=== PATIENT | male | born 1955 | race Hispanic/Latino ===

== ENCOUNTER 2016-10-07 18:37 | Emergency (ER) | payer MEDICAID, OTHER ==
[2016-10-07] MEDS ORDERED: Sodium Chloride 0.9% 1,000 ML ONE ×2 (19:37→22:47)
[2016-10-07 20:00] LABS: HEMATOCRIT 53.9 % (35.0-51.0); MEAN CELL VOLUME 93.8 fL (80.0-94.0); MEAN CORPUSCULAR HEMOGLOBIN 31.2 pg (27.0-31.0); MEAN CORPUSCULAR HGB CONC 33.3 g/dL (33.0-37.0); MEAN PLATELET VOLUME 11.8 fL (7.2-11.7); WHITE BLOOD COUNT 8.7 K/uL (4.8-10.8)
[2016-10-07 20:07] LABS: CHLORIDE 94 mmol/L (98-107); POTASSIUM 4.1 mmol/L (3.6-5.2); SODIUM 134 mmol/L (132-148)
[2016-10-07 20:09] LABS: BILIRUBIN,TOTAL 0.9 mg/dL (0.2-1.3); GFR AFRICAN-AMERICAN 57
[2016-10-07 20:10] LABS: ALB/GLOB RATIO 1.2 (1.0-2.1); ALKALINE PHOSPHATASE 113 U/L (38-126); ALT/SGPT 13 U/L (21-72); AST/SGOT 16 U/L (17-59); BLOOD UREA NITROGEN 16 mg/dL (9-20); CARBON DIOXIDE 25 mmol/L (22-30); GLUCOSE,RANDOM 334 mg/dL (75-110); TOTAL PROTEIN 8.9 g/dL (6.3-8.3)
[2016-10-07 20:11] LABS: CALCIUM 9.3 mg/dl (8.6-10.4)
--- NOTE | 2016-10-07 20:37 | C.PDOC ---
History Of Present Illness 61 year old patient, with a past medical history of hypertension, kidney stones , asthma, back problems, hypercholesterolemia, hepatitis and diabetes, presents to the ED complaining of tightness to the upper abdomen that began today. Patient states he also has pain and stiffness to his neck. Patient denies chest pain, nausea, vomiting, diarrhea, or shortness of breath. Time Seen by Provider: 10/07/16 20:20 History Per: Patient History/Exam Limitations: no limitations Onset/Duration Of Symptoms: Days (today) Current Symptoms Are (Timing): Still Present Context: Other Severity: Mild Pain Scale Rating Of: 3 Location Of Pain/Discomfort: Epigastric Radiation Of Pain To:: None Quality Of Discomfort: "Pain" Exacerbating Factors: None Alleviating Factors: None Last Bowel Movement: Today Recent travel outside of the [place]: No Past Medical History Reviewed: Historical Data, Nursing Documentation, Vital Signs Vital Signs: Last Vital Signs Temp Pulse 70 10/07/16 22:43 Resp 16 10/07/16 22:43 BP 77/51 L 10/07/16 22:43 Pulse Ox 98 10/07/16 22:43 - Medical History PMH: Asthma, Back Problems, Diabetes, Hepatitis (C), HTN, Hypercholesterolemia, Kidney Stones Surgical History: Coronary Stent (x1) - [facility] Procedures ESOPHAGOGASTRODUODENOSCOPY [EGD] W/CLOSED BIOPSY (07/31/13) EXCIS DEBRIDE OF WOUND, INFECT, OR BURN (03/22/14) INFLUENZA VACCINATION (03/22/14) INSERT INDWELLING CATH (12/09/14) LAPAROSCOPIC CHOLECYSTECTOMY (07/31/13) LAPAROSCOPIC ROBOTIC ASSISTED PROCEDURE (07/31/13) OTHER ENDOSCOPY OF SM INTEST (07/31/13) OTHER SKIN & SUBQ I D (03/22/14) VACCINATION NEC (04/05/13) Family History: States: Unknown Family Hx - Social History Hx Tobacco Use: Yes Hx Alcohol Use: No Hx Substance Use: No - Immunization History Hx Tetanus Toxoid Vaccination: Yes Hx Influenza Vaccination: Yes Hx Pneumococcal Vaccination: Yes Review Of Systems Except As Marked, All Systems Reviewed And Found Negative. Cardiovascular: Negative for: Chest Pain Respiratory: Negative for: Shortness of Breath Gastrointestinal: Positive for: Abdominal Pain (upper). Negative for: Nausea, Vomiting, Diarrhea Musculoskeletal: Positive for: Neck Pain (stiffness) Physical Exam - Physical Exam Appears: Non-toxic, No Acute Distress Skin: Warm, Dry Head: Atraumatic, Normacephalic Eye(s): bilateral: Normal Inspection Oral Mucosa: Moist Neck: Normal ROM, Supple Chest: Symmetrical, No Tenderness Cardiovascular: Rhythm Regular Respiratory: Normal Breath Sounds, No Rales, No Rhonchi, No Wheezing Gastrointestinal/Abdominal: Soft, Tenderness (mild epigastric), No Guarding, No Rebound Back: Normal Inspection, No CVA Tenderness Extremity: Normal ROM Neurological/Psych: Oriented x3, Normal Speech, Normal Motor, Normal Sensation Gait: Steady ED Course And Treatment - Laboratory Results Result Diagrams: 10/07/16 19:29 10/07/16 19:29 - CT Scan/US Chest CTA Other Rad Studies (CT/US): Read By Radiologist (Mikala Rivera MD), Radiology Report Reviewed CT/US Interpretation: EXAM: CT Angiography Chest With Intravenous Contrast. CLINICAL HISTORY: 61 years old, male; Signs and symptoms; Wheezing; Additional info: Elevated d-dimer. TECHNIQUE: Axial computed tomographic angiography images of the chest with intravenous contrast using. pulmonary embolism protocol. This CT exam was performed using one or more of the following dose. reduction techniques: automated exposure control, adjustment of the mA and/or kV according to. patient size, and/or use of iterative reconstruction technique. MIP reconstructed images were created and reviewed. Coronal and sagittal reformatted images were created and reviewed. CONTRAST: 100 mL of visipaque 320 administered intravenously. EXAM DATE/TIME: 10/07/2016 9:01 PM. COMPARISON: CT - CHEST W/CONTRAST 03/21/2014 6:08:02 PM. FINDINGS: Heart, aorta and Pulmonary arteries: Heart size is normal. There are coronary artery. calcifications.There is no aneurysm or dissection. There is perfusion of the 3 arch vesselsThere are. vascular calcifications. There are no pulmonary emboli. Lungs and pleural spaces: The trachea and bronchi lungs are well-inflated. There is no lobar or. segmental consolidation. There is dependent atelectasis in both lung bases. There is 6.8 mm. nodular opacity in the right upper lobe adjacent to the minor fissure. There are no effusions. There is. motion artifact. Mediastinum: There are no pathologically enlarged mediastinal or hilar nodes. Esophagus is. unremarkable. There is a small hiatal hernia. Thyroid: Thyroid is not optimally demonstrated. Bones/joints: There are no acute displaced rib fractures.Bony structures are osteopenic.There are. degenerative changes in the osseus structures. There is an old compression deformity at T7. Soft tissues: unremarkable. Upper abdomen: There are no acute abnormalities in the visualized portion of the abdomen. IMPRESSION: No aneurysm, dissection or pulmonary embolus; no focal pneumonia; 6.8 mm. nodular pleural-based opacity in the right upper lobe, allowing for differences in projection and. technique, opacity is unchanged. Disposition Counseled Patient/Family Regarding: Diagnosis - Disposition Referrals: [facility] at [facility] [Outside] Disposition: HOME/ ROUTINE Disposition Time: 22:58 Condition: STABLE Prescriptions: Famotidine [Pepcid] 20 mg PO BID #14 tab Sucralfate [Carafate] 1 gm PO BID #20 tab Instructions: Gastritis (GEN), Abdominal Pain (ED) - POA Present On Arrival: None - Clinical Impression Clinical Impression: Abdominal pain, Gastritis - Scribe Statement The provider has reviewed the documentation as recorded by the Rahul Holly Provider Attestation: All medical record entries made by the Fuentesibdawn were at my direction and personally dictated by me. I have reviewed the chart and agree that the record accurately reflects my personal performance of the history, physical exam, medical decision making, and the department course for this patient. I have also personally directed, reviewed, and agree with the discharge instructions and disposition.
[2016-10-07 20:53] VITALS: RESP 16
[2016-10-07 20:55] VITALS: BMI 24.3
--- NOTE | 2016-10-07 22:44 | CT ---
EXAM: CT Angiography Chest With Intravenous Contrast CLINICAL HISTORY: 61 years old, male; Signs and symptoms; Wheezing; Additional info: Elevated d-dimer TECHNIQUE: Axial computed tomographic angiography images of the chest with intravenous contrast using pulmonary embolism protocol. This CT exam was performed using one or more of the following dose reduction techniques: automated exposure control, adjustment of the mA and/or kV according to patient size, and/or use of iterative reconstruction technique. MIP reconstructed images were created and reviewed. Coronal and sagittal reformatted images were created and reviewed. CONTRAST: 100 mL of visipaque 320 administered intravenously. EXAM DATE/TIME: 10/07/2016 9:01 PM COMPARISON: CT - CHEST W/CONTRAST 03/21/2014 6:08:02 PM FINDINGS: Heart, aorta and Pulmonary arteries: Heart size is normal. There are coronary artery calcifications.There is no aneurysm or dissection. There is perfusion of the 3 arch vesselsThere are vascular calcifications. There are no pulmonary emboli. Lungs and pleural spaces: The trachea and bronchi lungs are well-inflated. There is no lobar or segmental consolidation. There is dependent atelectasis in both lung bases. There is 6.8 mm nodular opacity in the right upper lobe adjacent to the minor fissure. There are no effusions. There is motion artifact. Mediastinum: There are no pathologically enlarged mediastinal or hilar nodes. Esophagus is unremarkable. There is a small hiatal hernia. Thyroid: Thyroid is not optimally demonstrated. Bones/joints: There are no acute displaced rib fractures.Bony structures are osteopenic.There are degenerative changes in the osseus structures. There is an old compression deformity at T7. Soft tissues: unremarkable Upper abdomen: There are no acute abnormalities in the visualized portion of the abdomen. IMPRESSION: No aneurysm, dissection or pulmonary embolus; no focal pneumonia; 6.8 mm nodular pleural-based opacity in the right upper lobe, allowing for differences in projection and technique, opacity is unchanged.
[2016-10-07] MEDS ORDERED: Sodium Chloride 0.9% 1,000 ML IV ONE (22:49)
[2016-10-07] MEDS ORDERED: Sucralfate 1 gm/10 ml Oral Susp UD PO STA (22:53)
[2016-10-07] MEDS ORDERED: Sucralfate 1 gm/10 ml Oral Susp UD ONE (23:02)
[2016-10-07 23:42] VITALS: BP 100/57; PULSE 60; TEMP 98.4; O2SAT 96
--- NOTE | 2016-10-08 09:12 | RAD ---
HISTORY: PAIN COMPARISON: Chest x-ray performed 11/19/14 TECHNIQUE: Chest PA and lateral FINDINGS: LUNGS: No focal consolidation. Please note that chest x-ray has limited sensitivity for the detection of pulmonary masses. PLEURA: No significant pleural effusion identified. No definite pneumothorax . CARDIOVASCULAR: Heart size appears within normal limits. Atherosclerotic calcification of the aorta. OSSEOUS STRUCTURES: Osseous demineralization. Mild degenerative changes. VISUALIZED UPPER ABDOMEN: Unremarkable. OTHER FINDINGS: None. IMPRESSION: No focal consolidation, significant pleural effusion, or definite pneumothorax identified. Please note that pleural based opacity identified on subsequent CT of the chest cannot be assessed adequately on chest x-ray. Please refer to CT report for more detailed discussion.
== END 2016-10-07 23:42 | disposition home or self-care (01) ==
LOC: C.ER 18:37
DX: K29.70 Gastritis, unspecified, without bleeding (principal); R10.13 Epigastric pain
CPT/HCPCS: 71020; 71275; 80053; 82948; 83690; 83880; 84484; 85027; 85378; 96361; 96374; 99283; J7040; Q9967

== ENCOUNTER 2016-10-08 15:42 | Emergency (ER) | payer MEDICAID ==
[2016-10-08 15:43] VITALS: BMI 24.3
[2016-10-08] MEDS ORDERED: Sodium Chloride 0.9% 1,000 ML IV ONE (16:24)
[2016-10-08] MEDS ORDERED: Sodium Chloride 0.9% 1,000 ML ONE (16:39)
--- NOTE | 2016-10-08 16:39 | C.PDOC ---
History Of Present Illness A 61 year old male, with a history of HTN and gastritis, presents to the emergency room with complaints of abdominal pain for the last few days. Patient reports that the upper abdominal pain has been radiating to the left flank. Patient states that he was evaluated in the ER yesterday, had a negative CT, and was discharged home. Patient was seen by PMD and sent back to ER for reassessment. Patient denies any fever, chills, nausea, vomiting, diarrhea, any urinary symptoms, or any other complaints. Time Seen by Provider: 10/08/16 16:09 Chief Complaint (Nursing): Abdominal Pain History Per: Patient History/Exam Limitations: no limitations Onset/Duration Of Symptoms: Hrs Current Symptoms Are (Timing): Still Present Severity: Mild Radiation Of Pain To:: Flank Quality Of Discomfort: "Pain" Associated Symptoms: denies: Fever, Chills, Nausea, Vomiting, Diarrhea, Urinary Symptoms Exacerbating Factors: None Alleviating Factors: None Recent travel outside of the [place]: No Past Medical History Reviewed: Historical Data, Nursing Documentation, Vital Signs Vital Signs: Last Vital Signs Temp 98.2 F 10/08/16 15:58 Pulse 71 10/08/16 15:58 Resp 10 L 10/08/16 15:58 BP 145/80 10/08/16 15:58 Pulse Ox 99 10/08/16 16:49 - Medical History PMH: Asthma, Back Problems, Diabetes, Hepatitis (C), HTN, Hypercholesterolemia, Kidney Stones Surgical History: Coronary Stent (x1) - [facility] Procedures ESOPHAGOGASTRODUODENOSCOPY [EGD] W/CLOSED BIOPSY (07/31/13) EXCIS DEBRIDE OF WOUND, INFECT, OR BURN (03/22/14) INFLUENZA VACCINATION (03/22/14) INSERT INDWELLING CATH (12/09/14) LAPAROSCOPIC CHOLECYSTECTOMY (07/31/13) LAPAROSCOPIC ROBOTIC ASSISTED PROCEDURE (07/31/13) OTHER ENDOSCOPY OF SM INTEST (07/31/13) OTHER SKIN & SUBQ I D (03/22/14) VACCINATION NEC (04/05/13) Family History: States: Unknown Family Hx - Social History Hx Tobacco Use: Yes Hx Alcohol Use: No Hx Substance Use: No - Immunization History Hx Tetanus Toxoid Vaccination: Yes Hx Influenza Vaccination: Yes Hx Pneumococcal Vaccination: Yes Review Of Systems Except As Marked, All Systems Reviewed And Found Negative. Constitutional: Negative for: Fever, Chills Gastrointestinal: Positive for: Abdominal Pain. Negative for: Nausea, Vomiting , Diarrhea Musculoskeletal: Positive for: Back Pain (Left flank pain) Neurological: Negative for: Headache, Dizziness Physical Exam - Physical Exam Appears: Non-toxic Skin: Warm, Dry, No Rash Head: Atraumatic, Normacephalic Eye(s): bilateral: Normal Inspection Ear(s): Bilateral: Normal Oral Mucosa: Moist Cardiovascular: Rhythm Regular Respiratory: Normal Breath Sounds, No Rales, No Rhonchi, No Wheezing Gastrointestinal/Abdominal: Soft, Tenderness (Left sided abdomiinal tenderness) , No Guarding, No Rebound Back: No CVA Tenderness, No Vertebral Tenderness, Other (Left flank tenderness) Extremity: Normal ROM, No Tenderness, No Deformity, No Swelling Neurological/Psych: Oriented x3, Normal Speech, Normal Cognition ED Course And Treatment - Laboratory Results Result Diagrams: 10/08/16 16:40 10/08/16 16:40 O2 Sat by Pulse Oximetry: 99 Medical Decision Making Medical Decision Making: r/o gastritis, pancreatitis, renal stone Plan: -- EKG -- Abdomen & Pelvis CT -- Protonix & Zofran -- Labs pt reassessed. pain improving although mildly persisitent. case discussed with dr lee, requests obs for intractable abdominal pain Disposition - Disposition Disposition: HOSPITALIZED Disposition Time: 17:24 Condition: STABLE - Clinical Impression Clinical Impression: Intractable abdominal pain - Scribe Statement The provider has reviewed the documentation as recorded by the Scribe Juan rBan All medical record entries made by the Scribe were at my direction and personally dictated by me. I have reviewed the chart and agree that the record accurately reflects my personal performance of the history, physical exam, medical decision making, and the department course for this patient. I have also personally directed, reviewed, and agree with the discharge instructions and disposition. Decision To Admit - Pt Status Changed To: Hospital Disposition Of: Observation - . Bed Request Type: Regular Admitting Physician: Radha Lee Patient Diagnosis: Intractable abdominal pain
[2016-10-08 16:48] LABS: BASO # 0.1 K/uL (0.0-0.2); BASO % 1.3 % (0.0-2.0); EOS # 0.2 K/uL (0.0-0.7); EOS % 2.6 % (0.0-4.0); HEMATOCRIT 43.9 % (35.0-51.0); LYMPH # 2.1 K/uL (1.0-4.3); LYMPH % 33.4 % (20.0-40.0); MEAN CELL VOLUME 93.6 fL (80.0-94.0); MEAN CORPUSCULAR HEMOGLOBIN 31.1 pg (27.0-31.0); MEAN CORPUSCULAR HGB CONC 33.2 g/dL (33.0-37.0); MEAN PLATELET VOLUME 11.8 fL (7.2-11.7); MONO # 0.3 K/uL (0.0-0.8); MONO % 5.6 % (0.0-10.0); NRBC % 0.1 % (0.0-2.0); RED CELL DISTRIBUTION WIDTH 13.3 % (11.5-14.5); WHITE BLOOD COUNT 6.1 K/uL (4.8-10.8)
[2016-10-08 16:53] LABS: CHLORIDE 100 mmol/L (98-107)
[2016-10-08 16:54] LABS: SODIUM 133 mmol/L (132-148)
[2016-10-08 16:56] LABS: ALB/GLOB RATIO 1.2 (1.0-2.1); ALKALINE PHOSPHATASE 69 U/L (38-126); ALT/SGPT 14 U/L (21-72); AST/SGOT 14 U/L (17-59); BILIRUBIN,TOTAL 0.7 mg/dL (0.2-1.3); BLOOD UREA NITROGEN 25 mg/dL (9-20); CARBON DIOXIDE 22 mmol/L (22-30); GFR AFRICAN-AMERICAN > 60; GLUCOSE,RANDOM 259 mg/dL (75-110); TOTAL PROTEIN 6.5 g/dL (6.3-8.3)
[2016-10-08 17:04] LABS: RBC URINE < 1 /hpf (0-3); TRANSITIONAL EPITHIAL < 1 /hpf (0-3); URINE BACTERIA RARE (<OCC); URINE BILIRUBIN NEGATIVE (NEGATIVE); URINE BLOOD NEGATIVE (NEGATIVE); URINE COLOR Straw (YELLOW); URINE GLUCOSE (UA) 3+ mg/dL (Normal); URINE KETONE NEGATIVE (NEGATIVE); URINE LEUKOCYTE ESTERASE NEG Leu/uL (Negative); URINE PROTEIN NEGATIVE (NEGATIVE); URINE UROBILINOGEN NORMAL mg/dL (0.2-1.0); WBC URINE < 1 /hpf (0-5)
--- NOTE | 2016-10-08 17:17 | CT ---
PROCEDURE: CT Abdomen and Pelvis without intravenous contrast HISTORY: abd pain COMPARISON: Comparison is made to 04/08/2015 TECHNIQUE: Axial and reformatted coronal and sagittal CT images of the abdomen and pelvis were obtained without IV or oral contrast administration.. Contrast Dose: 0 Radiation dose: Total exam DLP = 488.29 mGy-cm. This CT exam was performed using one or more of the following dose reduction techniques: Automated exposure control, adjustment of the mA and/or kV according to patient size, and/or use of iterative reconstruction technique. FINDINGS: LOWER THORAX: Spiculated small density seen at the lingula likely represent scar tissue. LIVER: Heterogeneous mildly enlarged liver. No evidence of acute pathology or mass lesion in the liver. GALLBLADDER AND BILE DUCTS: Status post cholecystectomy. PANCREAS: Unremarkable. No gross lesion or ductal dilatation. SPLEEN: Unremarkable. ADRENALS: Unremarkable. No mass. KIDNEYS AND URETERS: Persistent kidney enhancement from previous study done yesterday. Correlate clinically for ATN and acute kidney insufficiency. No evidence of hydronephrosis or obstructing stone. VASCULATURE: Unremarkable. No aortic aneurysm. BOWEL: Mild constipation noted. No evidence of bowel obstruction. APPENDIX: No evidence of appendicitis. PERITONEUM: Unremarkable. No free fluid. No free air. LYMPH NODES: Unremarkable. No enlarged lymph nodes. BLADDER: Unremarkable. REPRODUCTIVE: Moderately enlarged heterogeneous prostate. BONES: No acute fracture. OTHER FINDINGS: None. IMPRESSION: Persistent enhancement of the kidneys likely from prior/yesterday contrast study. Correlate clinically for ATN and acute renal insufficiency. No evidence of hydronephrosis. Mild constipation without evidence of bowel obstruction. [id number] enlarged prostate.
[2016-10-08 20:19] VITALS: BP 151/96; PULSE 63; RESP 20; TEMP 98; O2SAT 95
--- NOTE | 2016-10-13 13:03 | CARD ---
APPROVED REPORT EKG Measurement Heart [id number] [place] 150P50 [id number] <Conclusion> Normal sinus rhythm Normal ECG
== END 2016-10-08 20:20 | disposition left against medical advice (07) ==
LOC: C.ER 15:42 → UNDOADMOB 17:23 → C.9E 17:23 → UNDODISOB 20:15 → C.ER 20:20
DX: R10.12 Left upper quadrant pain (principal); E11.9 Type 2 diabetes mellitus without complications; E78.00 Pure hypercholesterolemia, unspecified; I10 Essential (primary) hypertension; J45.909 Unspecified asthma, uncomplicated; Z87.891 Personal history of nicotine dependence
CPT/HCPCS: 74176; 80053; 81001; 83690; 84484; 85025; 85610; 85730; 96360; 96374; 99285; C9113; G0378; J2405; J7040

== ENCOUNTER 2017-03-09 20:53 | Emergency (ER) | payer MEDICAID ==
[2017-03-09 20:53] VITALS: BMI 24.3
[2017-03-09] MEDS ORDERED: (Novolin R) Insulin Human Regular 100 units/ml vial IV STA (21:20)
[2017-03-09] MEDS ORDERED: Sodium Chloride 0.9% 500 ML IV ONE (21:20)
--- NOTE | 2017-03-09 21:21 | C.PDOC ---
History Of Present Illness 61 y/o male c/o not sleeping properly for a week. Patient admits to cocaine abuse, in which he uses everyday. Patient has a hx of diabetes and stopped taking his meds. Denies chest pain, abdominal pain, SOB, or any other complaints. No dizziness, headache, weakness, or numbness. Time Seen by Provider: 03/09/17 21:24 Chief Complaint (Nursing): High Blood Pressure History Per: Patient History/Exam Limitations: no limitations Onset/Duration Of Symptoms: Days (1 week) Current Symptoms Are (Timing): Still Present Associated Symptoms: denies: Chest Pain, Dizziness, Headache Severity: Mild Additional History Per: Patient Past Medical History Reviewed: Historical Data, Nursing Documentation, Vital Signs Vital Signs: Last Vital Signs Temp 98 F 03/09/17 23:12 Pulse 86 03/09/17 23:12 Resp 20 03/09/17 23:12 BP 151/78 H 03/09/17 23:12 Pulse Ox 95 03/09/17 23:49 - Medical History PMH: Anxiety, Asthma, Back Problems, Diabetes, Hepatitis (C), HTN, Hypercholesterolemia, Kidney Stones Surgical History: Coronary Stent (x1) - [facility] Procedures ESOPHAGOGASTRODUODENOSCOPY [EGD] W/CLOSED BIOPSY (07/31/13) EXCIS DEBRIDE OF WOUND, INFECT, OR BURN (03/22/14) INFLUENZA VACCINATION (03/22/14) INSERT INDWELLING CATH (12/09/14) LAPAROSCOPIC CHOLECYSTECTOMY (07/31/13) LAPAROSCOPIC ROBOTIC ASSISTED PROCEDURE (07/31/13) OTHER ENDOSCOPY OF SM INTEST (07/31/13) OTHER SKIN & SUBQ I D (03/22/14) VACCINATION NEC (04/05/13) Family History: States: Unknown Family Hx - Social History Hx Tobacco Use: Yes Hx Alcohol Use: Yes Hx Substance Use: Yes - Immunization History Hx Tetanus Toxoid Vaccination: Yes Hx Influenza Vaccination: Yes Hx Pneumococcal Vaccination: Yes Review Of Systems Except As Marked, All Systems Reviewed And Found Negative. Constitutional: Positive for: Other Cardiovascular: Negative for: Chest Pain Respiratory: Negative for: Shortness of Breath Gastrointestinal: Negative for: Abdominal Pain Neurological: Positive for: Other (Not sleeping well for a week.). Negative for : Weakness, Numbness, Headache, Dizziness Physical Exam - Physical Exam Appears: Non-toxic, No Acute Distress Skin: Warm, Dry Head: Atraumatic, Normacephalic Oral Mucosa: Moist Cardiovascular: Rhythm Regular, No Murmur Respiratory: Normal Breath Sounds, No Rales, No Rhonchi, No Wheezing Gastrointestinal/Abdominal: Soft, No Tenderness Neurological/Psych: Oriented x3, Normal Speech, Normal Cognition, Other (No focal deficit) ED Course And Treatment - Laboratory Results Result Diagrams: 03/09/17 21:33 03/09/17 23:32 O2 Sat by Pulse Oximetry: 95 (RA) Pulse Ox Interpretation: Normal Medical Decision Making Medical Decision Making: Plans: * Blood labs * EKG * CXR * Xanax * Novolin * IV fluids UA Disposition Counseled Patient/Family Regarding: Diagnosis - Disposition Referrals: Radha Ferrari MD [Staff Provider] - Disposition: HOME/ ROUTINE Disposition Time: 23:51 Condition: STABLE Prescriptions: hydrOXYzine HCl [Atarax] 25 mg PO Q6H #14 tab Instructions: Polysubstance Abuse (ED), Diabetic Hyperglycemia (ED) Forms: [employer] (British) - POA Present On Arrival: None - Clinical Impression Clinical Impression: Cocaine abuse, Diabetes mellitus with hyperglycemia - Scribe Statement The provider has reviewed the documentation as recorded by the Scribe Avi torres All medical record entries made by the Scribe were at my direction and personally dictated by me. I have reviewed the chart and agree that the record accurately reflects my personal performance of the history, physical exam, medical decision making, and the department course for this patient. I have also personally directed, reviewed, and agree with the discharge instructions and disposition.
[2017-03-09] MEDS ORDERED: Sodium Chloride 0.9% 1,000 ML IV ONE (21:23)
[2017-03-09 21:41] LABS: ABG ALLEN TEST POS; ARTERIAL BLOOD HGB O2 SAT 88.5 % (95.0-98.0); CARBOXYHEMOGLOBIN 9.3 % (0.5-1.5); DRAW SITE RRA; HHB 1.2 % (0.0-5.0)
[2017-03-09 21:42] LABS: EOS # 0.1 K/uL (0.0-0.7); LYMPH # 1.6 K/uL (1.0-4.3); MEAN CORPUSCULAR HGB CONC 34.3 g/dL (33.0-37.0)
[2017-03-09] MEDS ORDERED: (Novolin R) Insulin Human Regular 100 units/ml vial ONE (21:42)
[2017-03-09 21:47] LABS: BASO # 0.1 K/uL (0.0-0.2); BASO % 0.8 % (0.0-2.0); EOS % 0.9 % (0.0-4.0); HEMATOCRIT 44.5 % (35.0-51.0); LYMPH % 21.9 % (20.0-40.0); MEAN CELL VOLUME 94.4 fL (80.0-94.0); MEAN CORPUSCULAR HEMOGLOBIN 32.4 pg (27.0-31.0); MONO # 0.4 K/uL (0.0-0.8); MONO % 5.2 % (0.0-10.0); NRBC % 0.1 % (0.0-2.0); RED CELL DISTRIBUTION WIDTH 13.5 % (11.5-14.5); WHITE BLOOD COUNT 7.3 K/uL (4.8-10.8)
[2017-03-09 21:51] LABS: CHLORIDE 98 mmol/L (98-107); SODIUM 130 mmol/L (132-148)
[2017-03-09 21:52] LABS: POTASSIUM 4.6 mmol/L (3.6-5.2)
[2017-03-09 21:54] LABS: ALB/GLOB RATIO 1.2 (1.0-2.1); ALKALINE PHOSPHATASE 120 U/L (38-126); ALT/SGPT 16 U/L (21-72); AST/SGOT 23 U/L (17-59); BILIRUBIN,TOTAL 0.7 mg/dL (0.2-1.3); BLOOD UREA NITROGEN 11 mg/dL (9-20); CALCIUM 8.9 mg/dl (8.6-10.4); CARBON DIOXIDE 22 mmol/L (22-30); GFR AFRICAN-AMERICAN > 60; TOTAL PROTEIN 7.8 g/dL (6.3-8.3)
[2017-03-09 21:56] LABS: GLUCOSE,RANDOM 458 mg/dL (75-110)
[2017-03-09 22:06] LABS: URINE BILIRUBIN NEGATIVE (NEGATIVE); URINE BLOOD NEGATIVE (NEGATIVE); URINE COLOR Straw (YELLOW); URINE GLUCOSE (UA) 3+ mg/dL (Normal); URINE KETONE NEGATIVE (NEGATIVE); URINE LEUKOCYTE ESTERASE NEG Leu/uL (Negative); URINE PROTEIN NEGATIVE (NEGATIVE); URINE UROBILINOGEN NORMAL mg/dL (0.2-1.0); WBC URINE < 1 /hpf (0-5)
[2017-03-09 23:12] VITALS: TEMP 98
[2017-03-09 23:42] LABS: CHLORIDE 103 mmol/L (98-107)
[2017-03-09 23:43] LABS: SODIUM 136 mmol/L (132-148)
[2017-03-09 23:45] LABS: CARBON DIOXIDE 24 mmol/L (22-30); GFR AFRICAN-AMERICAN > 60
[2017-03-09 23:46] LABS: BLOOD UREA NITROGEN 10 mg/dL (9-20); CALCIUM 8.2 mg/dl (8.6-10.4); GLUCOSE,RANDOM 106 mg/dL (75-110)
[2017-03-10 00:04] VITALS: BP 148/76; PULSE 78; RESP 16; O2SAT 99
--- NOTE | 2017-03-10 08:12 | RAD ---
HISTORY: chest pain COMPARISON: No prior. TECHNIQUE: Chest PA and lateral FINDINGS: LUNGS: No active pulmonary disease. PLEURA: No significant pleural effusion identified. No pneumothorax apparent. CARDIOVASCULAR: Normal. OSSEOUS STRUCTURES: No significant abnormalities. VISUALIZED UPPER ABDOMEN: Normal. OTHER FINDINGS: None. IMPRESSION: No active disease.
--- NOTE | 2017-03-11 12:07 | CARD ---
APPROVED REPORT EKG Measurement Heart [id number] [place] 154P59 [id number] <Conclusion> Normal sinus rhythm Normal ECG
== END 2017-03-10 00:04 | disposition home or self-care (01) ==
LOC: C.ER 20:53
DX: E11.65 Type 2 diabetes mellitus with hyperglycemia (principal); F14.10 Cocaine abuse, uncomplicated
CPT/HCPCS: 71020; 80048; 80053; 80324; 80345; 80346; 80349; 80353; 80358; 80361; 81001; 82009; 82803; 82948; 83992; 84484; 85025; 93005; 99285; J7040

== ENCOUNTER 2017-03-16 04:16 | Emergency (ER) | payer MEDICAID ==
[2017-03-16 04:16] VITALS: BMI 24.3
[2017-03-16 04:41] VITALS: RESP 20
--- NOTE | 2017-03-16 05:49 | C.PDOC ---
History Of Present Illness 61 year old male who presents to the ER statinf he was under investigation by detectives and believes his medical records were pulled by the prosecutor's office who informed him that he has throat cancer and advised him to come in for evaluation. Denies physical complaints at this time. Time Seen by Provider: 03/16/17 04:56 Chief Complaint (Nursing): Chest Pain History Per: Patient History/Exam Limitations: no limitations Onset/Duration Of Symptoms: Days Current Symptoms Are (Timing): Still Present Associated Symptoms: denies: Nausea, Dyspnea, Diaphoresis, Syncope Modifying Factors: None Exacerbating Factors: None Alleviating Factors: None Recent travel outside of the [place]: No Past Medical History Reviewed: Historical Data, Nursing Documentation, Vital Signs Vital Signs: Last Vital Signs Temp 97.7 F 03/16/17 04:38 Pulse 77 03/16/17 04:38 Resp 20 03/16/17 04:38 BP 109/71 03/16/17 04:38 Pulse Ox 97 03/16/17 05:50 - Medical History PMH: Anxiety, Asthma, Back Problems, Diabetes, Hepatitis (C), HTN, Hypercholesterolemia, Kidney Stones Surgical History: Coronary Stent (x1) - [facility] Procedures ESOPHAGOGASTRODUODENOSCOPY [EGD] W/CLOSED BIOPSY (07/31/13) EXCIS DEBRIDE OF WOUND, INFECT, OR BURN (03/22/14) INFLUENZA VACCINATION (03/22/14) INSERT INDWELLING CATH (12/09/14) LAPAROSCOPIC CHOLECYSTECTOMY (07/31/13) LAPAROSCOPIC ROBOTIC ASSISTED PROCEDURE (07/31/13) OTHER ENDOSCOPY OF SM INTEST (07/31/13) OTHER SKIN & SUBQ I D (03/22/14) VACCINATION NEC (04/05/13) Family History: States: Unknown Family Hx - Social History Hx Tobacco Use: Yes Hx Alcohol Use: Yes Hx Substance Use: Yes - Immunization History Hx Tetanus Toxoid Vaccination: Yes Hx Influenza Vaccination: Yes Hx Pneumococcal Vaccination: Yes Review Of Systems Constitutional: Negative for: Fever, Chills ENT: Negative for: Mouth Pain, Mouth Swelling, Throat Pain, Throat Swelling Gastrointestinal: Negative for: Nausea, Vomiting Musculoskeletal: Negative for: Neck Pain Physical Exam - Physical Exam Appears: Non-toxic, No Acute Distress Skin: Normal Color, Warm, Dry Head: Atraumatic, Normacephalic Eye(s): bilateral: Normal Inspection, EOMI Oral Mucosa: Moist Throat: Normal Neck: Normal, Supple Chest: Symmetrical, No Tenderness Cardiovascular: Rhythm Regular Respiratory: Normal Breath Sounds, No Accessory Muscle Use, No Rales, No Rhonchi , No Wheezing Gastrointestinal/Abdominal: Soft, No Tenderness Neurological/Psych: Oriented x3, Normal Speech, Normal Cognition ED Course And Treatment O2 Sat by Pulse Oximetry: 97 (Room air) Pulse Ox Interpretation: Normal Progress Note: Patient is resting comfortably, and is in no acute distress. Patient was instructed to follow up with PMD in 1-2 days for further evaluation. Disposition Counseled Patient/Family Regarding: Diagnosis, Need For Followup, Rx Given - Disposition Referrals: Radha Rashid MD [Staff Provider] - Disposition: HOME/ ROUTINE Disposition Time: 05:47 Condition: STABLE Additional Instructions: pLEASE FOLLOW UP WITH DR RASHID RETURN TO ER IF WORSE Forms: [facility] (Polish), General Discharge Instructions - Clinical Impression Clinical Impression: Encounter for medical assessment - Scribe Statement The provider has reviewed the documentation as recorded by the Scribe Keith Tsai All medical record entries made by the Scribe were at my direction and personally dictated by me. I have reviewed the chart and agree that the record accurately reflects my personal performance of the history, physical exam, medical decision making, and the department course for this patient. I have also personally directed, reviewed, and agree with the discharge instructions and disposition.
[2017-03-16 06:15] VITALS: BP 116/71; PULSE 81; TEMP 98; O2SAT 100
--- NOTE | 2017-03-17 23:05 | CARD ---
APPROVED REPORT EKG Measurement Heart [id number] [place] 150P54 [id number] <Conclusion> Normal sinus rhythm Normal ECG
== END 2017-03-16 06:25 | disposition home or self-care (01) ==
LOC: C.ER 04:16
DX: Z04.8 Encounter for examination and observation for other specified reasons (principal)

== ENCOUNTER 2017-03-22 16:07 | Emergency (ER) | payer MEDICAID ==
[2017-03-22 16:07] VITALS: BMI 24.3
--- NOTE | 2017-03-22 16:37 | C.PDOC ---
History Of Present Illness 61 year old male was brought to the ED by EMS and [facility] for psychiatric evaluation. Patient was observed by a neighbor on top of his roof, prior to arrival. Patient states he takes medication that "makes me imagine." He denies fever, chest pain, suicidal, or homicidal ideations. Time Seen by Provider: 03/22/17 16:19 Chief Complaint (Nursing): Psychiatric Evaluation History Per: Patient, EMS (and [facility] ) History/Exam Limitations: no limitations Onset/Duration Of Symptoms: Hrs Current Symptoms Are (Timing): Better Suicide/Self Injury Attempted (Context): None Modifying Factor(s): None Pain Scale Rating Of: 0 Associated Symptoms: denies: Suicidal Thoughts, Suicidal Plan Involuntary Hold By: None Recent travel outside of the [place]: No Past Medical History Reviewed: Historical Data, Nursing Documentation, Vital Signs Vital Signs: Last Vital Signs Temp 98.5 F 03/22/17 16:15 Pulse 92 H 03/22/17 16:15 Resp 18 03/22/17 16:15 BP 152/87 H 03/22/17 16:15 Pulse Ox 96 03/22/17 16:15 - Medical History PMH: Anxiety, Asthma, Back Problems, Diabetes, Hepatitis (C), HTN, Hypercholesterolemia, Kidney Stones, Parkinson's Disease Surgical History: Coronary Stent (x1) - [facility] Procedures ESOPHAGOGASTRODUODENOSCOPY [EGD] W/CLOSED BIOPSY (07/31/13) EXCIS DEBRIDE OF WOUND, INFECT, OR BURN (03/22/14) INFLUENZA VACCINATION (03/22/14) INSERT INDWELLING CATH (12/09/14) LAPAROSCOPIC CHOLECYSTECTOMY (07/31/13) LAPAROSCOPIC ROBOTIC ASSISTED PROCEDURE (07/31/13) OTHER ENDOSCOPY OF SM INTEST (07/31/13) OTHER SKIN & SUBQ I D (03/22/14) VACCINATION NEC (04/05/13) Family History: States: Unknown Family Hx - Social History Hx Tobacco Use: Yes Hx Alcohol Use: Yes Hx Substance Use: Yes - Immunization History Hx Tetanus Toxoid Vaccination: Yes Hx Influenza Vaccination: Yes Hx Pneumococcal Vaccination: Yes Review Of Systems Except As Marked, All Systems Reviewed And Found Negative. Constitutional: Negative for: Fever Cardiovascular: Negative for: Chest Pain Psych: Negative for: Suicidal ideation Physical Exam - Physical Exam Additional Physical Exam Comments: Constitutional: No acute distress. Head: Normocephalic. Atraumatic. Eyes: PERRL. ENT: Moist mucous membranes. Neck: Supple. Cardiovascular: Regular rate. Radial pulse 2+ bilaterally. Chest: No tenderness. Respiratory: Clear to auscultation bilaterally. GI: Soft. Nontender. Nondistended. Back: No CVA tenderness. Musculoskeletal: No tenderness or swelling of extremities. Skin: No rash. Neurologic: Alert, no focal deficit. ED Course And Treatment - Laboratory Results Result Diagrams: 03/22/17 16:57 03/22/17 16:57 Progress Note: UA and labs were ordered. Patient will be evaluated by CRISIS counselor at bed side. Medical Decision Making Medical Decision Making: Will medically clear for psychiatric evaluation. Evaulated by Crisis and discussed with Dr. Alejandro who recommends discharge. 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 I have reviewed the chart and agree that the record accurately reflects my personal performance of the history, physical exam, medical decision making, and the department course for this patient. I have also personally directed, reviewed, and agree with the discharge instructions and disposition.
[2017-03-22 16:40] VITALS: RESP 18; O2SAT 96
[2017-03-22 17:18] LABS: BASO # 0.1 K/uL (0.0-0.2); BASO % 1.3 % (0.0-2.0); EOS # 0.1 K/uL (0.0-0.7); EOS % 1.1 % (0.0-4.0); HEMATOCRIT 47.7 % (35.0-51.0); LYMPH # 1.1 K/uL (1.0-4.3); LYMPH % 18.8 % (20.0-40.0); MEAN CELL VOLUME 94.3 fL (80.0-94.0); MEAN CORPUSCULAR HEMOGLOBIN 32.3 pg (27.0-31.0); MEAN CORPUSCULAR HGB CONC 34.3 g/dL (33.0-37.0); MEAN PLATELET VOLUME 10.4 fL (7.2-11.7); MONO # 0.3 K/uL (0.0-0.8); MONO % 5.6 % (0.0-10.0); RED CELL DISTRIBUTION WIDTH 13.3 % (11.5-14.5); WHITE BLOOD COUNT 5.8 K/uL (4.8-10.8)
[2017-03-22 17:28] LABS: CHLORIDE 96 mmol/L (98-107); POTASSIUM 5.1 mmol/L (3.6-5.2); SODIUM 131 mmol/L (132-148)
[2017-03-22 17:30] LABS: GFR AFRICAN-AMERICAN > 60
[2017-03-22 17:31] LABS: ALB/GLOB RATIO 1.5 (1.0-2.1); ALKALINE PHOSPHATASE 95 U/L (38-126); ALT/SGPT 25 U/L (21-72); AST/SGOT 18 U/L (17-59); BILIRUBIN,TOTAL 1.2 mg/dL (0.2-1.3); BLOOD UREA NITROGEN 29 mg/dL (9-20); CALCIUM 9.4 mg/dl (8.6-10.4); CARBON DIOXIDE 23 mmol/L (22-30); GLUCOSE,RANDOM 302 mg/dL (75-110); TOTAL PROTEIN 7.5 g/dL (6.3-8.3)
[2017-03-22 17:32] LABS: ALCOHOL SERUM < 10 mg/dl (0-10)
[2017-03-22 18:27] LABS: RBC URINE < 1 /hpf (0-3); URINE BILIRUBIN NEGATIVE (NEGATIVE); URINE BLOOD NEGATIVE (NEGATIVE); URINE COLOR Yellow (YELLOW); URINE GLUCOSE (UA) 3+ mg/dL (Normal); URINE KETONE TRACE mg/dL (NEGATIVE); URINE LEUKOCYTE ESTERASE NEG Leu/uL (Negative); URINE PROTEIN NEGATIVE (NEGATIVE); URINE UROBILINOGEN NORMAL mg/dL (0.2-1.0)
[2017-03-22 18:49] VITALS: BP 130/76; PULSE 69; TEMP 98.1
== END 2017-03-22 18:56 | disposition home or self-care (01) ==
LOC: C.ER 16:07
DX: F19.959 Other psychoactive substance use, unspecified with psychoactive substance-induced psychotic disorder, unspecified (principal); E11.9 Type 2 diabetes mellitus without complications; E78.00 Pure hypercholesterolemia, unspecified; I10 Essential (primary) hypertension; G20 Parkinson's disease; Z87.891 Personal history of nicotine dependence

== ENCOUNTER 2017-04-06 17:33 | Emergency (ER) | payer MEDICAID ==
[2017-04-06 17:33] VITALS: BMI 24.3
[2017-04-06 17:52] VITALS: BP 134/89; PULSE 100; RESP 20; TEMP 97.4; O2SAT 98
--- NOTE | 2017-04-06 19:46 | C.PDOC ---
History Of Present Illness 61 y/o male c/o left knee pain for the past week. Patient denies injury, weakness, or numbness. Time Seen by Provider: 04/06/17 18:14 Chief Complaint (Nursing): Lower Extremity Problem/Injury History Per: Patient History/Exam Limitations: no limitations Onset/Duration Of Symptoms: Days Current Symptoms Are (Timing): Still Present Severity: Mild Recent travel outside of the [place]: No Additional History Per: Patient Past Medical History Reviewed: Historical Data, Nursing Documentation, Vital Signs Vital Signs: Last Vital Signs Temp 97.4 F L 04/06/17 17:50 Pulse 100 H 04/06/17 17:50 Resp 20 04/06/17 17:50 BP 134/89 04/06/17 17:50 Pulse Ox 98 04/06/17 19:46 - Medical History PMH: Anxiety, Asthma, Back Problems, Diabetes, Hepatitis (C), HTN, Hypercholesterolemia, Kidney Stones, Parkinson's Disease Denies: Seizures Surgical History: Coronary Stent (x1) - [facility] Procedures ESOPHAGOGASTRODUODENOSCOPY [EGD] W/CLOSED BIOPSY (07/31/13) EXCIS DEBRIDE OF WOUND, INFECT, OR BURN (03/22/14) INFLUENZA VACCINATION (03/22/14) INSERT INDWELLING CATH (12/09/14) LAPAROSCOPIC CHOLECYSTECTOMY (07/31/13) LAPAROSCOPIC ROBOTIC ASSISTED PROCEDURE (07/31/13) OTHER ENDOSCOPY OF SM INTEST (07/31/13) OTHER SKIN & SUBQ I D (03/22/14) VACCINATION NEC (04/05/13) Family History: States: Unknown Family Hx - Social History Hx Tobacco Use: Yes Hx Alcohol Use: No Hx Substance Use: Yes (cocaine) - Immunization History Hx Tetanus Toxoid Vaccination: Yes Hx Influenza Vaccination: Yes Hx Pneumococcal Vaccination: No Review Of Systems Except As Marked, All Systems Reviewed And Found Negative. Musculoskeletal: Positive for: Leg Pain (Left knee pain) Neurological: Negative for: Weakness, Numbness Physical Exam - Physical Exam Appears: Non-toxic, No Acute Distress Skin: Warm, Dry Head: Atraumatic, Normacephalic Extremity: Normal ROM (x4), Tenderness (Tenderness to the medial aspect of the left knee. No erythema or warmth), Capillary Refill (<2secs), No Deformity, No Swelling Neurological/Psych: Oriented x3, Normal Motor, Normal Sensation Gait: Steady (Walks slow, no limp noted) ED Course And Treatment O2 Sat by Pulse Oximetry: 98 Pulse Ox Interpretation: Normal Progress Note: Before patient was to go to XRAY patient eloped from the ER without getting a XRAY. Disposition - Disposition Disposition: ELOPEMENT - ER ONLY Disposition Time: 19:46 Condition: STABLE Forms: [facility] (Samoan) - Clinical Impression Clinical Impression: Knee pain - Scribe Statement The provider has reviewed the documentation as recorded by the Scribe Avi torres All medical record entries made by the Fuentesibe were at my direction and personally dictated by me. I have reviewed the chart and agree that the record accurately reflects my personal performance of the history, physical exam, medical decision making, and the department course for this patient. I have also personally directed, reviewed, and agree with the discharge instructions and disposition.
== END 2017-04-06 19:40 | disposition left against medical advice (07) ==
LOC: C.ER 17:33
DX: M25.562 Pain in left knee (principal)

== ENCOUNTER → 2017-07-24 02:58 | Emergency (ER) | payer MEDICAID ==
[2017-07-24 03:00] VITALS: BMI 24.3
== END | disposition left against medical advice (07) ==
LOC: C.ER 02:58
DX: Z02.89 Encounter for other administrative examinations (principal)

== ENCOUNTER 2017-09-24 21:47 | Emergency (ER) | payer MEDICAID ==
[2017-09-24 21:47] VITALS: BMI 24.3
[2017-09-24 21:58] VITALS: BP 117/76; PULSE 72; TEMP 97.5; O2SAT 99
[2017-09-24 22:07] VITALS: RESP 16
--- NOTE | 2017-09-24 22:18 | C.PDOC ---
History Of Present Illness 62 y/o male with a history of DM presents to the ED for bilateral pain in great toes. Patient states the pain began 8 months ago and was referred by his PMD to this ED. PMD: Dr. nAdi Ferrari Time Seen by Provider: 09/24/17 22:10 Chief Complaint (Nursing): Abnormal Skin Integrity History Per: Patient History/Exam Limitations: no limitations Onset/Duration Of Symptoms: Days (8 months) Past Medical History Vital Signs: Last Vital Signs Temp 97.5 F L 09/24/17 22:05 Pulse 72 09/24/17 22:05 Resp 16 09/24/17 22:05 BP 117/76 09/24/17 22:05 Pulse Ox 99 09/24/17 22:18 - Medical History PMH: Anxiety, Asthma, Back Problems, Diabetes, Hepatitis (C), HTN, Hypercholesterolemia, Kidney Stones, Parkinson's Disease Denies: Seizures Surgical History: Coronary Stent (x1) - [facility] Procedures ESOPHAGOGASTRODUODENOSCOPY [EGD] W/CLOSED BIOPSY (07/31/13) EXCIS DEBRIDE OF WOUND, INFECT, OR BURN (03/22/14) INFLUENZA VACCINATION (03/22/14) INSERT INDWELLING CATH (12/09/14) LAPAROSCOPIC CHOLECYSTECTOMY (07/31/13) LAPAROSCOPIC ROBOTIC ASSISTED PROCEDURE (07/31/13) OTHER ENDOSCOPY OF SM INTEST (07/31/13) OTHER SKIN & SUBQ I D (03/22/14) VACCINATION NEC (04/05/13) Family History: States: Unknown Family Hx - Social History Hx Tobacco Use: Yes Hx Alcohol Use: No Hx Substance Use: Yes (cocaine) - Immunization History Hx Tetanus Toxoid Vaccination: Yes Hx Influenza Vaccination: Yes Hx Pneumococcal Vaccination: No Review Of Systems Except As Marked, All Systems Reviewed And Found Negative. Musculoskeletal: Positive for: Foot Pain (bilateral pain to the great toes) Physical Exam - Physical Exam Appears: Well, No Acute Distress Skin: Normal Color, Warm, Dry Head: Atraumatic, Normacephalic Eye(s): bilateral: Normal Inspection, PERRL, EOMI Nose: Normal Throat: Normal Neck: Normal Cardiovascular: Rhythm Regular, No Murmur Respiratory: Normal Breath Sounds, No Decreased Breath Sounds Gastrointestinal/Abdominal: Normal Exam Back: Normal Inspection, No CVA Tenderness, No Vertebral Tenderness Extremity: Normal ROM, No Tenderness (bilateral great toes or erythema), Other ( severe chronic mycosis of the bilateral toenails, good sensation of the toes) Neurological/Psych: Oriented x3 ED Course And Treatment O2 Sat by Pulse Oximetry: 99 Medical Decision Making Medical Decision Making: b/l great toe onychomycosis, no infection, normal sensation referred 2 days ago for toe discomfort x 8 months, unchanged from baseline. LOW suspicion of infection refer to Podiatry for eval and tx Disposition Doctor Will See Patient In The: Office Counseled Patient/Family Regarding: Studies Performed, Diagnosis - Disposition Referrals: Andi Ferrari MD [Medical Doctor] - Jamil Head DPM [Staff Provider] - Disposition: HOME/ ROUTINE Disposition Time: 22:17 Condition: GOOD Additional Instructions: Call Dr Head's office for evaluation of your toe nails. Instructions: Fungal Nail Infections Forms: [facility] (Hong Konger) - Clinical Impression Clinical Impression: Onychomycosis of toenail
== END 2017-09-24 22:28 | disposition home or self-care (01) ==
LOC: C.ER 21:47
DX: B35.1 Tinea unguium (principal)

== ENCOUNTER 2017-10-23 15:08 | Emergency (ER) | payer MEDICAID ==
[2017-10-23 15:08] VITALS: BMI 24.3
[2017-10-23 15:23] VITALS: RESP 18; O2SAT 98
--- NOTE | 2017-10-23 16:32 | RAD ---
Right foot three views History: 5th metatarsal pain. Comparison: None available. Findings: Suboptimal evaluation of the right foot on the frontal view as the metatarsal bones at the bases are overlapping. Mild to moderate hallux valgus deformity. No evidence of acute displaced fracture or dislocation. Bipartite medial sesamoid bone. Vascular calcifications. Impression: Suboptimal evaluation of the right foot on the frontal view as the metatarsal bones at the bases are overlapping. Mild to moderate hallux valgus deformity. No evidence of acute displaced fracture or dislocation. Bipartite medial sesamoid bone. Vascular calcifications. If pain persists, consider MRI.
[2017-10-23 16:43] VITALS: BP 159/61; PULSE 70; TEMP 97.1
--- NOTE | 2017-10-23 17:31 | C.PDOC ---
History Of Present Illness 62 year old male, with PMHx of diabetes, presents to ED for evaluation of right 5th toe pain, redness, and itchiness since today. Denies trauma, or any other complaints at this time. Chief Complaint (Nursing): Lower Extremity Problem/Injury History Per: Patient History/Exam Limitations: no limitations Onset/Duration Of Symptoms: Days Current Symptoms Are (Timing): Still Present Recent travel outside of the [place]: No Additional History Per: Patient Past Medical History Reviewed: Historical Data, Nursing Documentation, Vital Signs Vital Signs: Last Vital Signs Temp 97.1 F L 10/23/17 16:35 Pulse 70 10/23/17 16:35 Resp 18 10/23/17 16:35 BP 159/61 H 10/23/17 16:35 Pulse Ox 98 10/23/17 17:34 - Medical History PMH: Anxiety, Asthma, Back Problems, Diabetes, Hepatitis (C), HTN, Hypercholesterolemia, Kidney Stones, Parkinson's Disease Denies: Seizures Surgical History: Coronary Stent (x1) - [facility] Procedures ESOPHAGOGASTRODUODENOSCOPY [EGD] W/CLOSED BIOPSY (07/31/13) EXCIS DEBRIDE OF WOUND, INFECT, OR BURN (03/22/14) INFLUENZA VACCINATION (03/22/14) INSERT INDWELLING CATH (12/09/14) LAPAROSCOPIC CHOLECYSTECTOMY (07/31/13) LAPAROSCOPIC ROBOTIC ASSISTED PROCEDURE (07/31/13) OTHER ENDOSCOPY OF SM INTEST (07/31/13) OTHER SKIN & SUBQ I D (03/22/14) VACCINATION NEC (04/05/13) Family History: States: Unknown Family Hx - Social History Hx Tobacco Use: Yes Hx Alcohol Use: No Hx Substance Use: Yes (cocaine) - Immunization History Hx Tetanus Toxoid Vaccination: Yes Hx Influenza Vaccination: Yes Hx Pneumococcal Vaccination: No Review Of Systems Except As Marked, All Systems Reviewed And Found Negative. Constitutional: Negative for: Fever, Chills Musculoskeletal: Positive for: Foot Pain (right) Neurological: Negative for: Weakness, Numbness Physical Exam - Physical Exam Appears: Non-toxic, No Acute Distress Skin: Warm, Dry, Other (thickened parker bilateral toenails, erythema to dorsal and lateral aspect of right foot) Head: Atraumatic, Normacephalic Eye(s): bilateral: Normal Inspection Cardiovascular: Rhythm Regular Respiratory: Normal Breath Sounds, No Rales, No Rhonchi, No Wheezing Extremity: Normal ROM, No Tenderness, Capillary Refill (less than 2 seconds), No Deformity, No Swelling Pulses: Right Dorsalis Pedis: Normal Neurological/Psych: Oriented x3, Normal Speech ED Course And Treatment O2 Sat by Pulse Oximetry: 98 (RA) Pulse Ox Interpretation: Normal Medical Decision Making Medical Decision Making: Right foot x-ray was ordered and reviewed. Pt states he will follow up with PMD in office tomorrow morning. Disposition - Disposition Referrals: Radha Ferrari MD [Staff Provider] - Disposition: HOME/ ROUTINE Disposition Time: 16:00 Condition: GOOD Additional Instructions: Thank you for letting us take care of you today. The emergency medical care you received today was directed at your acute symptoms. If you were prescribed any medication, please fill it and take as directed. It may take several days for your symptoms to resolve. Return to the Emergency Department if your symptoms worsen, do not improve, or if you have any other problems. Please contact your doctor or call one of the physicians/clinics you have been referred to that are listed on the Patient Visit Information form that is included in your discharge packet. Bring any paperwork you were given at discharge with you along with any medications you are taking to your follow up visit. Our treatment cannot replace ongoing medical care by a primary care provider (PCP) outside of the emergency department. Thank you for allowing the [facility] team to be part of your care today. Follow up with your primary doctor in 3-4 days for re-evaluation and further management. Prescriptions: Tolnaftate [Tinactin] 15 gm TP Q8 #1 cream..g. Instructions: Athlete's Foot (DC) Forms: [employer] (Russian) - Clinical Impression Clinical Impression: Tinea pedis - Scribe Statement The provider has reviewed the documentation as recorded by the Fuentesibe Dick Holly All medical record entries made by the Scribe were at my direction and personally dictated by me. I have reviewed the chart and agree that the record accurately reflects my personal performance of the history, physical exam, medical decision making, and the department course for this patient. I have also personally directed, reviewed, and agree with the discharge instructions and disposition.
== END 2017-10-23 16:43 | disposition home or self-care (01) ==
LOC: C.ER 15:08
DX: B35.3 Tinea pedis (principal); E11.9 Type 2 diabetes mellitus without complications; E78.00 Pure hypercholesterolemia, unspecified; I10 Essential (primary) hypertension; G20 Parkinson's disease; Z72.0 Tobacco use

== ENCOUNTER 2018-01-24 01:45 | Emergency (ER) | payer MEDICAID ==
[2018-01-24 01:46] VITALS: BMI 24.3
--- NOTE | 2018-01-24 02:28 | C.PDOC ---
History Of Present Illness 62 year old male presents to the ED c/o left sided chest pain radiating to her left upper back since yesterday. Patient states also having intermittent dizziness but now not present anymore. Patient states he now feels like abdomen "feels weird". Patient reports " I don't know how to described it but I feel weird from my chest down to my belly". Patient denies fever, chill, nausea, vomit, diarrhea, dysuria, hematuria, back pain, headache, SOB, palpitations. Time Seen by Provider: 01/24/18 02:13 Chief Complaint (Nursing): Chest Pain History Per: Patient History/Exam Limitations: no limitations Onset/Duration Of Symptoms: Days Current Symptoms Are (Timing): Still Present Quality: Other Recent travel outside of the [place]: No Additional History Per: Patient Past Medical History Reviewed: Historical Data, Nursing Documentation, Vital Signs Vital Signs: Last Vital Signs Temp 97.7 F 01/24/18 01:56 Pulse 59 L 01/24/18 02:17 Resp 20 01/24/18 01:56 BP 168/84 H 01/24/18 01:56 Pulse Ox 97 01/24/18 03:36 - Medical History PMH: Anxiety, Asthma, Back Problems, Diabetes, Hepatitis (C), HTN, Hypercholesterolemia, Kidney Stones, Parkinson's Disease Denies: Seizures Surgical History: Coronary Stent (x1) - [facility] Procedures ESOPHAGOGASTRODUODENOSCOPY [EGD] W/CLOSED BIOPSY (07/31/13) EXCIS DEBRIDE OF WOUND, INFECT, OR BURN (03/22/14) INFLUENZA VACCINATION (03/22/14) INSERT INDWELLING CATH (12/09/14) LAPAROSCOPIC CHOLECYSTECTOMY (07/31/13) LAPAROSCOPIC ROBOTIC ASSISTED PROCEDURE (07/31/13) OTHER ENDOSCOPY OF SM INTEST (07/31/13) OTHER SKIN & SUBQ I D (03/22/14) VACCINATION NEC (04/05/13) Family History: States: Unknown Family Hx - Social History Hx Tobacco Use: Yes Hx Alcohol Use: No Hx Substance Use: Yes (cocaine) - Immunization History Hx Tetanus Toxoid Vaccination: Yes Hx Influenza Vaccination: No Hx Pneumococcal Vaccination: No Review Of Systems Constitutional: Negative for: Fever, Chills Cardiovascular: Positive for: Chest Pain. Negative for: Palpitations Respiratory: Negative for: Cough, Shortness of Breath Gastrointestinal: Positive for: Abdominal Pain. Negative for: Nausea, Vomiting , Diarrhea Musculoskeletal: Positive for: Back Pain Skin: Negative for: Rash Neurological: Negative for: Weakness, Numbness Physical Exam - Physical Exam Appears: Non-toxic, No Acute Distress Skin: Normal Color, Warm, Dry Head: Atraumatic, Normacephalic Eye(s): bilateral: Normal Inspection Oral Mucosa: Moist Neck: Normal ROM, Supple Chest: Symmetrical Cardiovascular: Rhythm Regular Respiratory: Normal Breath Sounds, No Rales, No Rhonchi Gastrointestinal/Abdominal: Soft, No Tenderness, No Distention, No Guarding, No Rebound Back: No CVA Tenderness Extremity: Normal ROM, No Tenderness, No Swelling Neurological/Psych: Oriented x3, Normal Speech Gait: Steady ED Course And Treatment - Laboratory Results Result Diagrams: 01/24/18 02:37 01/24/18 02:37 ECG: Interpreted By Me, Viewed By Me ECG Rhythm: Sinus Bradycardia ECG Interpretation: No Acute Changes Rate From EC (BPM) O2 Sat by Pulse Oximetry: 97 (ON RA) Pulse Ox Interpretation: Normal - Radiology CXR: Interpreted by Me, Viewed By Me CXR Interpretation: Yes: No Acute Disease Progress Note: Plan: - CXR. - EKG. - Labs. Pt with DM presents with Lt CP. labs, EKG wnl, pt refused admission. understands risks and benefits of his decision. AMA form signed Against Medical Advice - AMA Patient Left Against Medical Advice: The patient declines admission to the hospital and wishes to leave the Emergency Department. This action is against my medical advice. This decision was made with informed refusal. The patient was told that admission to the hospital is necessary. Explanation of the reasons why were discussed. The risks of leaving were explained to the patient and include, but are not limited to, worsening of known or currently unknown conditions, permanent disability and from undiagnosed or untreated conditions. The patient has the capacity to make this informed decision and understands my explanation of the current medical problem and risks of leaving. The patient voluntarily accepts these risks and signed an AMA form documenting our conversation. The patient was given the opportunity to ask questions and reconsider. The patient was encouraged to return to the Emergency Department at any time for further care. Disposition - Disposition Disposition: AGAINST MEDICAL ADVICE Disposition Time: 03:44 Condition: GOOD Instructions: Chest Pain (DC) Forms: [employer] (Telugu) - Clinical Impression Clinical Impression: Chest pain - PA / [employer]DEL [employer] / Resident Statement MD/DO has reviewed & agrees with the documentation as recorded. - Scribe Statement The provider has reviewed the documentation as recorded by the Scribe René Duarte All medical record entries made by the Fuentesibe were at my direction and personally dictated by me. I have reviewed the chart and agree that the record accurately reflects my personal performance of the history, physical exam, medical decision making, and the department course for this patient. I have also personally directed, reviewed, and agree with the discharge instructions and disposition.
[2018-01-24 02:45] LABS: BASO # 0.1 K/uL (0.0-0.2); BASO % 0.5 % (0.0-2.0); EOS # 0.3 K/uL (0.0-0.7); EOS % 2.8 % (0.0-4.0); HEMOGLOBIN 13.2 g/dL (12.0-18.0); LYMPH # 2.5 K/uL (1.0-4.3); LYMPH % 24.9 % (20.0-40.0); MEAN CORPUSCULAR HEMOGLOBIN 32.3 pg (27.0-31.0); MEAN PLATELET VOLUME 10.5 fL (7.2-11.7); MONO # 0.5 K/uL (0.0-0.8); MONO % 4.8 % (0.0-10.0); NEUT # 6.7 K/uL (1.8-7.0); NRBC % 0.1 % (0.0-2.0); RBC 4.1 Mil/uL (4.40-5.90); RED CELL DISTRIBUTION WIDTH 14.1 % (11.5-14.5)
[2018-01-24 02:52] LABS: ALB/GLOB RATIO 1.4 (1.0-2.1); ALBUMIN 3.9 g/dL (3.5-5.0); ALT/SGPT 18 U/L (21-72); AST/SGOT 13 U/L (17-59); BLOOD UREA NITROGEN 28 mg/dL (9-20); CALCIUM 9.6 mg/dl (8.6-10.4); GFR NON-AFRICAN AMERICAN > 60; LIPASE 117 U/L (23-300)
[2018-01-24 04:11] VITALS: BP 114/68; PULSE 88; RESP 16; TEMP 98.6; O2SAT 98
--- NOTE | 2018-01-24 09:16 | RAD ---
Date of service: 01/24/2018 HISTORY: chest pain COMPARISON: 07/23/2017 chest x-ray and CT chest 10/07/2016 TECHNIQUE: Chest PA and lateral FINDINGS: LUNGS: No consolidation. An interval 3 to 4 mm nodular opacity projects over left lung base an anterior left anterior 7th rib. Its significance, if any is unclear. A bone island, left nipple shadow or a left pulmonary nodule are all considerations. It is also not definitively appreciated on the 10/07/2016 CT chest PLEURA: No significant pleural effusion identified. No pneumothorax apparent. CARDIOVASCULAR: Normal. OSSEOUS STRUCTURES: No fracture seen. Interval 8 mm rounded density projects over the right humeral head also not seen on prior multiple chest x-rays in this location -although a interval bone is 1 consideration. Calcific bursitis center calcific rotator cuff tendinopathy are not excluded. This does not appear similar to the artifactual snap projecting over the left humeral head. VISUALIZED UPPER ABDOMEN: Normal. OTHER FINDINGS: None. IMPRESSION: No interval infiltrate. Interval 3 to 4 mm nodular opacity over left lung base indeterminate in its etiology as referenced above. Consider nipple markers and bilateral oblique views versus follow-up CT chest imaging without IV contrast to clarify. Interval 8 mm rounded density over right humeral head -as referenced above. Consider right shoulder x-ray for further evaluation. Comments: Study marked for PA review .
--- NOTE | 2018-01-25 16:58 | CARD ---
APPROVED REPORT Date of service: 01/24/2018 EKG Measurement Heart [id number] CT [id number] [id number] <Conclusion> Sinus bradycardia Otherwise normal ECG
== END 2018-01-24 04:11 | disposition left against medical advice (07) ==
LOC: C.ER 01:45
DX: R07.9 Chest pain, unspecified (principal)

== ENCOUNTER 2018-02-24 02:23 | Emergency (ER) | payer MEDICAID ==
[2018-02-24 02:29] VITALS: BMI 24.3
[2018-02-24 02:44] VITALS: TEMP 97.5; O2SAT 97
[2018-02-24] MEDS ORDERED: Iohexol 240 (50 ml) PO STA (02:56)
--- NOTE | 2018-02-24 03:01 | C.PDOC ---
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 Denies fever. Patient has surgical Hx of a questionable appendectomy. He was seen on 01/24/18 for abdominal pain and chest pain, he was offered admission but left AMA. Patient has prior ER visits for various psych complaints, intoxication, and pain complaints. Time Seen by Provider: 02/24/18 02:47 Chief Complaint (Nursing): Abdominal Pain History Per: Patient History/Exam Limitations: no limitations Onset/Duration Of Symptoms: Hrs, Sudden Onset Current Symptoms Are (Timing): Still Present Location Of Pain/Discomfort: Epigastric Radiation Of Pain To:: None Quality Of Discomfort: Unable To Describe Associated Symptoms: Nausea. denies: Fever Exacerbating Factors: None Alleviating Factors: None Recent travel outside of the [place]: No Past Medical History Reviewed: Historical Data, Nursing Documentation, Vital Signs Vital Signs: Last Vital Signs Temp 97.5 F L 02/24/18 02:38 Pulse 74 02/24/18 02:38 Resp 18 02/24/18 02:38 BP 145/88 02/24/18 02:38 Pulse Ox 97 02/24/18 02:38 - Medical History PMH: Anxiety, Asthma, Back Problems, Diabetes, Hepatitis (C), HTN, Hypercholesterolemia, Kidney Stones, Parkinson's Disease Denies: Seizures Surgical History: Coronary Stent (x1) - [facility] Procedures ESOPHAGOGASTRODUODENOSCOPY [EGD] W/CLOSED BIOPSY (07/31/13) EXCIS DEBRIDE OF WOUND, INFECT, OR BURN (03/22/14) INFLUENZA VACCINATION (03/22/14) INSERT INDWELLING CATH (12/09/14) LAPAROSCOPIC CHOLECYSTECTOMY (07/31/13) LAPAROSCOPIC ROBOTIC ASSISTED PROCEDURE (07/31/13) OTHER ENDOSCOPY OF SM INTEST (07/31/13) OTHER SKIN & SUBQ I D (03/22/14) VACCINATION NEC (04/05/13) Family History: States: Unknown Family Hx - Social History Hx Tobacco Use: Yes Hx Alcohol Use: No Hx Substance Use: Yes (cocaine) - Immunization History Hx Tetanus Toxoid Vaccination: Yes Hx Influenza Vaccination: No Hx Pneumococcal Vaccination: No Review Of Systems Except As Marked, All Systems Reviewed And Found Negative. Constitutional: Negative for: Fever Cardiovascular: Negative for: Chest Pain, Palpitations Respiratory: Negative for: Cough, Shortness of Breath Gastrointestinal: Positive for: Nausea, Abdominal Pain Neurological: Negative for: Weakness, Numbness Physical Exam - Physical Exam Appears: Non-toxic, Other (Calm, Cooperative, No acute intoxication) Skin: Normal Color, Warm, Dry Head: Atraumatic, Normacephalic Eye(s): bilateral: Normal Inspection Oral Mucosa: Moist Neck: Normal, Supple Chest: Symmetrical, No Tenderness Cardiovascular: Rhythm Regular Respiratory: Normal Breath Sounds, No Rales, No Rhonchi, No Wheezing Gastrointestinal/Abdominal: Soft, Tenderness (Epigastric), No Guarding, No Rebound Back: No CVA Tenderness Extremity: Normal ROM (x4) Neurological/Psych: Oriented x3, Normal Speech Gait: Steady ED Course And Treatment - Laboratory Results Result Diagrams: 02/24/18 03:18 02/24/18 03:20 ECG: Interpreted By Me ECG Rhythm: Sinus Rhythm Rate From EC O2 Sat by Pulse Oximetry: 97 (Room air) Pulse Ox Interpretation: Normal - Radiology CXR: Interpreted by Me CXR Interpretation: Yes: No Acute Disease Progress - Re-Evaluation Re-evaluation Note: 02/24/18 06:15 NO S/S ACUTE ABD. VSS. CT REPORT REVIEWED. - Data Reviewed Data Reviewed: Lab, Diagnostic imaging, EKG, Old records Medical Decision Making Medical Decision Making: Plan: * CT abd/pel * EKG * Blood work * CXR * Urinalysis * Morphine * Pepcid * Zofran Disposition Counseled Patient/Family Regarding: Studies Performed, Diagnosis, Need For Followup, Rx Given - Disposition Referrals: YOUR,PMD [Other] Disposition: HOME/ ROUTINE Disposition Time: 06:15 Condition: IMPROVED Prescriptions: Magnesium Citrate [[facility] Magnesium Citrate] 300 ml PO ONCE #1 bottle Instructions: Constipation, Adult (DC) Forms: [employer] (Irish) - Clinical Impression Clinical Impression: Constipation, Abdominal discomfort - Scribe Statement The provider has reviewed the documentation as recorded by the Scribe Keith Tsai All medical record entries made by the Scribe were at my direction and personally dictated by me. I have reviewed the chart and agree that the record accurately reflects my personal performance of the history, physical exam, medical decision making, and the department course for this patient. I have also personally directed, reviewed, and agree with the discharge instructions and disposition.
[2018-02-24 03:24] LABS: BASO # 0.1 K/uL (0.0-0.2); BASO % 0.8 % (0.0-2.0); EOS # 0.2 K/uL (0.0-0.7); EOS % 2.6 % (0.0-4.0); HEMOGLOBIN 13.7 g/dL (12.0-18.0); LYMPH # 1.3 K/uL (1.0-4.3); LYMPH % 17.7 % (20.0-40.0); MEAN CORPUSCULAR HEMOGLOBIN 32.3 pg (27.0-31.0); MEAN PLATELET VOLUME 10.5 fL (7.2-11.7); MONO # 0.6 K/uL (0.0-0.8); MONO % 7.7 % (0.0-10.0); NEUT # 5.4 K/uL (1.8-7.0); NEUT % 71.2 % (50.0-75.0); RBC 4.23 Mil/uL (4.40-5.90); RED CELL DISTRIBUTION WIDTH 14.6 % (11.5-14.5); WHITE BLOOD COUNT 7.6 K/uL (4.8-10.8)
[2018-02-24 03:32] LABS: ALB/GLOB RATIO 1.4 (1.0-2.1); ALBUMIN 4.1 g/dL (3.5-5.0); ALT/SGPT 27 U/L (21-72); AST/SGOT 20 U/L (17-59); BLOOD UREA NITROGEN 29 mg/dL (9-20); CALCIUM 9.6 mg/dl (8.6-10.4); GFR NON-AFRICAN AMERICAN > 60; LIPASE 63 U/L (23-300)
[2018-02-24] MEDS ORDERED: Iohexol 240 (50 ml) ONE (03:54)
[2018-02-24] MEDS ORDERED: Iodixanol 320 MG/ML 100 ML BOTTLE IV ONE (04:48)
[2018-02-24 06:19] VITALS: BP 130/80; PULSE 80; RESP 14
--- NOTE | 2018-02-24 08:35 | RAD ---
Date of service: 02/24/2018 PROCEDURE: CHEST RADIOGRAPH, 1 VIEW HISTORY: Abdominal pain COMPARISON: 01/24/2018. FINDINGS: LUNGS: The lungs are well inflated and clear. PLEURA: No pneumothorax or pleural fluid seen. CARDIOVASCULAR: Normal. OSSEOUS STRUCTURES: No significant abnormalities. VISUALIZED UPPER ABDOMEN: Normal. OTHER FINDINGS: None. IMPRESSION: No active pulmonary disease.
--- NOTE | 2018-02-24 10:13 | CT ---
Date of service: 02/24/2018 PROCEDURE: CT Abdomen and Pelvis with contrast HISTORY: Abdominal pain COMPARISON: 10/08/2016 TECHNIQUE: CT scan of the abdomen and pelvis was performed after administration of intravenous contrast. Oral contrast was not administered. Coronal and sagittal reformatted images were obtained. Contrast dose: 100 mL Visipaque Radiation dose: Total exam DLP = 440.85 mGy-cm. This CT exam was performed using one or more of the following dose reduction techniques: Automated exposure control, adjustment of the mA and/or kV according to patient size, and/or use of iterative reconstruction technique. FINDINGS: LOWER THORAX: The lung bases are clear. LIVER: Normal in size with homogeneous enhancement. No gross lesion or ductal dilatation. GALLBLADDER AND BILE DUCTS: Not visualized and may be surgically absent. PANCREAS: Normal in size with homogeneous enhancement. No gross lesion or ductal dilatation. SPLEEN: Normal in size and appearance. ADRENALS: No discrete nodule. KIDNEYS AND URETERS: Normal in size with homogeneous enhancement. No hydronephrosis. No solid mass. VASCULATURE: Atherosclerotic aortoiliac calcifications. No aortic aneurysm. BOWEL: The small bowel loops are normal in caliber. There is large amount of stool in the colon. No bowel dilatation or obstruction. APPENDIX: Normal appendix. PERITONEUM: No free fluid. No free air. LYMPH NODES: No enlarged lymph nodes. BLADDER: Well distended and normal in appearance. REPRODUCTIVE: The prostate gland is normal in size. BONES: No acute fracture. Diffuse bone demineralization OTHER FINDINGS: None. IMPRESSION: No acute abdominal or pelvic abnormality. Constipation. No bowel obstruction. A preliminary report was provided by [employer] (Closed).
--- NOTE | 2018-02-27 11:01 | CARD ---
APPROVED REPORT Date of service: 02/24/2018 EKG Measurement Heart [id number] <Conclusion> Normal sinus rhythm Cannot rule out Anterior infarct, age undetermined Abnormal ECG
== END 2018-02-24 06:44 | disposition home or self-care (01) ==
LOC: C.ER 02:23
DX: K59.00 Constipation, unspecified (principal); R10.9 Unspecified abdominal pain; I10 Essential (primary) hypertension; E11.9 Type 2 diabetes mellitus without complications; E78.00 Pure hypercholesterolemia, unspecified; G20 Parkinson's disease; Z95.5 Presence of coronary angioplasty implant and graft; F17.210 Nicotine dependence, cigarettes, uncomplicated
CPT/HCPCS: 71045; 74177; 80053; 80320; 82948; 83690; 84484; 85025; 96374; 96375; 99284; J2270; J2405; Q9966; Q9967

== ENCOUNTER 2018-05-31 08:12 | Emergency (ER) | payer MEDICAID ==
[2018-05-31 08:12] VITALS: BMI 24.3
[2018-05-31 08:29] VITALS: TEMP 97.8
[2018-05-31] MEDS ORDERED: Tdap Vaccine 0.5 ml Vial (10-64 yrs) IM ONE ×2 (09:01→10:25)
--- NOTE | 2018-05-31 09:07 | C.PDOC ---
History Of Present Illness 62 y/o male brought to ER by ambulance for evaluation of head laceration s/p fall in escalator in the morning today. Patient states that he fell backwards hitting his head. He thinks he may have lost his consciousness for few seconds. Patient is also complaining of lower back pain.Denies having headache, dizziness, nausea, vomiting, abdominal pain, and bowel/bladder incontinence. - HPI Time Seen by Provider: 05/31/18 08:37 Chief Complaint (Nursing): Trauma History Per: Patient History/Exam Limitations: no limitations Onset/Duration Of Symptoms: Hrs Severity: Moderate Past Medical History Reviewed: Historical Data, Nursing Documentation, Vital Signs Vital Signs: Last Vital Signs Temp 97.8 F 05/31/18 08:23 Pulse 66 05/31/18 08:23 Resp 18 05/31/18 08:23 BP 154/84 H 05/31/18 08:23 Pulse Ox 96 05/31/18 08:23 - Medical History PMH: Anxiety, Asthma, Back Problems, Diabetes, Hepatitis (C), HTN, Hypercholesterolemia, Kidney Stones, Parkinson's Disease, Chronic Kidney Disease Denies: Seizures Surgical History: Coronary Stent (x2) - [facility] Procedures ESOPHAGOGASTRODUODENOSCOPY [EGD] W/CLOSED BIOPSY (07/31/13) EXCIS DEBRIDE OF WOUND, INFECT, OR BURN (03/22/14) INFLUENZA VACCINATION (03/22/14) INSERT INDWELLING CATH (12/09/14) LAPAROSCOPIC CHOLECYSTECTOMY (07/31/13) LAPAROSCOPIC ROBOTIC ASSISTED PROCEDURE (07/31/13) OTHER ENDOSCOPY OF SM INTEST (07/31/13) OTHER SKIN & SUBQ I D (03/22/14) VACCINATION NEC (04/05/13) Family History: States: No Known Family Hx - Social History Hx Tobacco Use: Yes Hx Alcohol Use: Yes Hx Substance Use: No (cocaine) - Immunization History Hx Tetanus Toxoid Vaccination: No Hx Influenza Vaccination: Yes Hx Pneumococcal Vaccination: Yes Review Of Systems Except As Marked, All Systems Reviewed And Found Negative. Constitutional: Negative for: Fever, Chills Gastrointestinal: Negative for: Nausea, Vomiting, Abdominal Pain Genitourinary: Negative for: Dysuria, Incontinence, Hematuria Musculoskeletal: Positive for: Back Pain Skin: Positive for: Other (head laceration) Neurological: Negative for: Weakness, Numbness Physical Exam - Physical Exam Appears: Non-toxic, No Acute Distress Skin: Normal Color, Warm, Dry Head: Normacephalic, Laceration (approx 5 cm laceration to forehead) Eye(s): bilateral: Normal Inspection, PERRL, EOMI Nose: Normal Oral Mucosa: Moist Neck: Supple Chest: Symmetrical Cardiovascular: Rhythm Regular Respiratory: Normal Breath Sounds, No Rales, No Rhonchi, No Wheezing Gastrointestinal/Abdominal: Soft, No Tenderness, No Guarding, No Rebound Back: No Vertebral Tenderness, Paraspinal Tenderness (lumbar paraspinal tenderness) Neurological/Psych: Oriented x3, Normal Speech Gait: Steady ED Course And Treatment O2 Sat by Pulse Oximetry: 96 (RA) Pulse Ox Interpretation: Normal - Other Rad P-Plu-Djbohv Spine X-Ray: Viewed By Me, Read By Radiologist Interpretation: Date of service: 05/31/2018. PROCEDURE: Radiographs of the Lumbar Spine. HISTORY: trauma. COMPARISON: No prior. FINDINGS: BONES: Normal alignment. No listhesis. No fracture. DISC SPACES: Minor facet arthropathy L5-S1, L4-L5 and to a lesser degree L3-L4 levels. Disc space heights are relatively maintained.. OTHER FINDINGS: . Vascular calcifications of the abdominal aorta iliac arteries. The. IMPRESSION: No acute fractures. Mild degenerative facet arthropathy as above. - CT Scan/US CT-Head Other Rad Studies (CT/US): Read By Radiologist, Radiology Report Reviewed CT/US Interpretation: Date of service: 05/31/2018. PROCEDURE: CT HEAD WITHOUT CONTRAST. HISTORY: R/O Bleed. COMPARISON: Noncontrast head CT performed 11/18/14. TECHNIQUE: Axial computed tomography images were obtained through the head/brain without intravenous contrast. Radiation dose: Total exam DLP = 1120.59 mGy-cm. This CT exam was performed using one or more of the following dose reduction techniques: Automated exposure control, adjustment of the mA and/or kV according to patient size, and/or use of iterative reconstruction technique. FINDINGS: HEMORRHAGE: No intracranial hemorrhage. BRAIN: No mass effect or edema. Intracranial atherosclerotic calcifications. The parker-white matter differentiation appears intact. Please note that MRI with diffusion imaging is more sensitive in the detection of acute ischemic event. VENTRICLES: No hydrocephalus. CALVARIUM: Unremarkable. PARANASAL SINUSES: Mucosal thickening of the ethmoid air cells. MASTOID AIR CELLS: Unremarkable as visualized. No inflammatory changes. OTHER FINDINGS: Partial opacification of the right external auditory canal, likely cerumen. IMPRESSION: No acute intracranial pathology identified. CT- Cervical Spine Other Rad Studies (CT/US): Read By Radiologist, Radiology Report Reviewed CT/US Interpretation: Date of service: 05/31/2018. CT cervical spine without IV contrast. Indication: neck pain. Comparison: None available. Technique: Axial computed tomography images were obtained of the cervical spine without the use of intravenous contrast. Coronal and sagittal reformatted images were created and reviewed. This CT exam was performed using 1 or more of the following dose reduction techniques: Automated exposure control, adjustment of the MAA and/or kV according to patient size, and/or use of iterative reconstruction technique. Radiation dose: Total exam DLP = 540.34 mGy-cm. Findings: Degenerative changes including intervertebral disc space narrowing. Osseous demineralization. There is no evidence of acute fracture or subluxation. The prevertebral soft tissues and spinolaminar lines appear intact. The lateral masses are preserved. The dens tip is intact. There is proper alignment of the lateral masses of C1 with the C2 vertebral body. Carotid artery calcifications. Included portions of the thyroid gland demonstrate large bilateral hypodense nodules. 3 mm calcification on the right. Included portions of lung apices appear clear. Impression: No evidence of acute fracture or subluxation. Degenerative changes. Osseous demineralization. Large bilateral hypodense thyroid nodules. 3 mm right inferior thyroid gland calcification. Nonemergent thyroid ultrasound suggested for further evaluation if indicated. Progress Note: Treated with Tdap IM. On re-evaluation alert, ambulating with steady gait Reassessment Condition: Improved Laceration - Laceration Repair No standard instances Wound Length (In cm): 5 cm Description Of Wound: Irregular Anesthesia: Lidocaine 1% Wound Examination: Irrigated With Saline Wound Closure: Suture Suture Technique And Material Used: Interrupted Wound Complexity: Simple Medical Decision Making Medical Decision Making: Plan: --CT-Head --CT-Cervical Spine --CT-Lumbar Spine --Tetanus Vaccination Disposition Counseled Patient/Family Regarding: Studies Performed, Diagnosis, Need For Followup - Disposition Referrals: [facility] [Outside] [facility] [Outside] Disposition: HOME/ ROUTINE Disposition Time: 10:50 Condition: STABLE Additional Instructions: Follow up with clinic for further evaluation Instructions: Closed Head Injury (DC) Forms: [employer] (Ethiopian) - POA Present On Arrival: None - Clinical Impression Clinical Impression: Contusion, Laceration - injury - 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 - Scribe Statement The provider has reviewed the documentation as recorded by the Fuentesibe Robert Lance Provider Attestation All medical record entries made by the Scribe were at my direction and personally dictated by me. I have reviewed the chart and agree that the record accurately reflects my personal performance of the history, physical exam, medical decision making, and the department course for this patient. I have also personally directed, reviewed, and agree with the discharge instructions and disposition.
--- NOTE | 2018-05-31 10:18 | CT ---
Date of service: 05/31/2018 PROCEDURE: CT HEAD WITHOUT CONTRAST. HISTORY: R/O Bleed COMPARISON: Noncontrast head CT performed 11/18/14 TECHNIQUE: Axial computed tomography images were obtained through the head/brain without intravenous contrast. Radiation dose: Total exam DLP = 1120.59 mGy-cm. This CT exam was performed using one or more of the following dose reduction techniques: Automated exposure control, adjustment of the mA and/or kV according to patient size, and/or use of iterative reconstruction technique. FINDINGS: HEMORRHAGE: No intracranial hemorrhage. BRAIN: No mass effect or edema. Intracranial atherosclerotic calcifications. The parker-white matter differentiation appears intact. Please note that MRI with diffusion imaging is more sensitive in the detection of acute ischemic event. VENTRICLES: No hydrocephalus. CALVARIUM: Unremarkable. PARANASAL SINUSES: Mucosal thickening of the ethmoid air cells. MASTOID AIR CELLS: Unremarkable as visualized. No inflammatory changes. OTHER FINDINGS: Partial opacification of the right external auditory canal, likely cerumen. IMPRESSION: No acute intracranial pathology identified.
--- NOTE | 2018-05-31 10:30 | CT ---
Date of service: 05/31/2018 CT cervical spine without IV contrast Indication: neck pain Comparison: None available Technique: Axial computed tomography images were obtained of the cervical spine without the use of intravenous contrast. Coronal and sagittal reformatted images were created and reviewed. This CT exam was performed using 1 or more of the following dose reduction techniques: Automated exposure control, adjustment of the MAA and/or kV according to patient size, and/or use of iterative reconstruction technique. Radiation dose: Total exam DLP = 540.34 mGy-cm. Findings: Degenerative changes including intervertebral disc space narrowing. Osseous demineralization. There is no evidence of acute fracture or subluxation. The prevertebral soft tissues and spinolaminar lines appear intact. The lateral masses are preserved. The dens tip is intact. There is proper alignment of the lateral masses of C1 with the C2 vertebral body. Carotid artery calcifications. Included portions of the thyroid gland demonstrate large bilateral hypodense nodules. 3 mm calcification on the right. Included portions of lung apices appear clear. Impression: No evidence of acute fracture or subluxation. Degenerative changes. Osseous demineralization. Large bilateral hypodense thyroid nodules. 3 mm right inferior thyroid gland calcification. Nonemergent thyroid ultrasound suggested for further evaluation if indicated.
--- NOTE | 2018-05-31 11:10 | RAD ---
Date of service: 05/31/2018 PROCEDURE: Radiographs of the Lumbar Spine. HISTORY: trauma COMPARISON: No prior. FINDINGS: BONES: Normal alignment. No listhesis. No fracture. DISC SPACES: Minor facet arthropathy L5-S1, L4-L5 and to a lesser degree L3-L4 levels. Disc space heights are relatively maintained.. OTHER FINDINGS: . Vascular calcifications of the abdominal aorta iliac arteries. The IMPRESSION: No acute fractures. Mild degenerative facet arthropathy as above.
[2018-05-31 11:47] VITALS: BP 136/78; PULSE 65; RESP 17
[2018-05-31 12:54] VITALS: O2SAT 96
== END 2018-05-31 11:45 | disposition home or self-care (01) ==
LOC: C.ER 08:12
DX: S01.81XA Laceration without foreign body of other part of head, initial encounter (principal); W10.0XXA Fall (on)(from) escalator, initial encounter; E78.00 Pure hypercholesterolemia, unspecified; I12.9 Hypertensive chronic kidney disease with stage 1 through stage 4 chronic kidney disease, or unspecified chronic kidney disease; N18.9 Chronic kidney disease, unspecified; G20 Parkinson's disease; Z23 Encounter for immunization

== ENCOUNTER 2018-06-01 01:04 | Emergency (ER) | payer MEDICAID ==
[2018-06-01 01:06] VITALS: BMI 24.3
[2018-06-01 01:32] VITALS: RESP 20
--- NOTE | 2018-06-01 02:45 | C.PDOC ---
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 Patient was seen yesterday for left facial contusion and laceration, he had CT head done that was negative and had sutures places. Patient took nothing at home at home for the pain. Denies blurry vision, decreased vision, headache, or dizziness. Time Seen by Provider: 06/01/18 02:00 Chief Complaint (Nursing): Eye Problem History Per: Patient History/Exam Limitations: no limitations Onset/Duration Of Symptoms: Hrs Current Symptoms Are (Timing): Still Present Injury To Eye?: No Wears Contact Lens?: No Associated Symptoms: denies: Decreased Vision Past Medical History Reviewed: Historical Data, Nursing Documentation, Vital Signs Vital Signs: Last Vital Signs Temp 97.5 F L 06/01/18 01:25 Pulse 68 06/01/18 01:25 Resp 20 06/01/18 01:25 BP 154/82 H 06/01/18 01:25 Pulse Ox 94 L 06/01/18 01:25 - Medical History PMH: Anxiety, Asthma, Back Problems, Diabetes, Hepatitis (C), HTN, Hypercholesterolemia, Kidney Stones, Parkinson's Disease, Chronic Kidney Disease Denies: Seizures Surgical History: Coronary Stent (x2) - [facility] Procedures ESOPHAGOGASTRODUODENOSCOPY [EGD] W/CLOSED BIOPSY (07/31/13) EXCIS DEBRIDE OF WOUND, INFECT, OR BURN (03/22/14) INFLUENZA VACCINATION (03/22/14) INSERT INDWELLING CATH (12/09/14) LAPAROSCOPIC CHOLECYSTECTOMY (07/31/13) LAPAROSCOPIC ROBOTIC ASSISTED PROCEDURE (07/31/13) OTHER ENDOSCOPY OF SM INTEST (07/31/13) OTHER SKIN & SUBQ I D (03/22/14) VACCINATION NEC (04/05/13) Family History: States: Unknown Family Hx - Social History Hx Tobacco Use: Yes Hx Alcohol Use: Yes Hx Substance Use: No (cocaine) - Immunization History Hx Tetanus Toxoid Vaccination: No Hx Influenza Vaccination: Yes Hx Pneumococcal Vaccination: Yes Review Of Systems Eyes: Negative for: Vision Change Gastrointestinal: Negative for: Nausea, Vomiting Musculoskeletal: Positive for: Other (Left frontal scalp pain to left orbit) Neurological: Negative for: Headache, Dizziness Physical Exam - Physical Exam Appears: Non-toxic Skin: Warm, Dry Head: Normacephalic, Other (Sutured wound to left frontal scalp, no periorbital tenderness or swelling, no facial bone deformity) Eye(s): bilateral: Normal Inspection, PERRL, EOMI Ear(s): Bilateral: Normal Nose: Normal Oral Mucosa: Moist Neck: Normal, No Midline Cervical Tenderness, No Paracervical Tenderness, Supple Neurological/Psych: Oriented x3, Normal Speech ED Course And Treatment O2 Sat by Pulse Oximetry: 94 (room air) Pulse Ox Interpretation: Normal Progress Note: Patient is resting comfortably in the ER in no acute distress, vitals are stable, will discharge home with instructions to take OTC medications for pain and follow up with PMD. Disposition Counseled Patient/Family Regarding: Diagnosis, Need For Followup - Disposition Referrals: [facility] [Outside] Disposition: HOME/ ROUTINE Disposition Time: 02:45 Condition: STABLE Additional Instructions: Please follow up with PMD Take tylenol or advil for pain Return to ER if worse Instructions: Contusion (DC), Head Injury (ED) Forms: [employer] 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 - Scribe Statement The provider has reviewed the documentation as recorded by the Scribdawn Tsai All medical record entries made by the Scribe were at my direction and personally dictated by me. I have reviewed the chart and agree that the record accurately reflects my personal performance of the history, physical exam, medical decision making, and the department course for this patient. I have also personally directed, reviewed, and agree with the discharge instructions and disposition.
[2018-06-01 02:59] VITALS: BP 140/78; PULSE 72; TEMP 98.2
[2018-06-01 04:11] VITALS: O2SAT 94
== END 2018-06-01 02:59 | disposition home or self-care (01) ==
LOC: C.ER 01:04
DX: S00.83XD Contusion of other part of head, subsequent encounter (principal); X58.XXXD Exposure to other specified factors, subsequent encounter

== ENCOUNTER 2018-06-28 12:35 | Emergency (ER) | payer MEDICAID ==
[2018-06-28 12:36] VITALS: BMI 24.3
[2018-06-28 12:43] VITALS: BP 152/92; PULSE 79; RESP 18; TEMP 97.6; O2SAT 100
--- NOTE | 2018-06-28 12:59 | C.PDOC ---
History Of Present Illness 62 y/o male presents to the ED for suture removal. Was seen here on 05/31 and had 6 sutures placed after a mechanical fall. Patient reports he was told the sutures would fall out but they have not. Otherwise he denies any fevers, chills, persistent pain, or redness/drainage from site, headache, dizziness, vision changes, or any other associated symptoms. Time Seen by Provider: 06/28/18 12:42 Chief Complaint (Nursing): Suture/Staple Removal History Per: Patient History/Exam Limitations: no limitations Onset/Duration Of Symptoms: Days Ago (since 05/31) Current Symptoms Are (Timing): Better Location Of Injury: Left: Head Past Medical History Reviewed: Historical Data, Nursing Documentation, Vital Signs Vital Signs: Last Vital Signs Temp 97.6 F 06/28/18 12:38 Pulse 79 06/28/18 12:38 Resp 18 06/28/18 12:38 BP 152/92 H 06/28/18 12:38 Pulse Ox 100 06/28/18 12:38 - Medical History PMH: Anxiety, Asthma, Back Problems, Diabetes, Hepatitis (C), HTN, Hypercholesterolemia, Kidney Stones, Parkinson's Disease, Chronic Kidney Disease Denies: Seizures Surgical History: Coronary Stent (x2) - [facility] Procedures ESOPHAGOGASTRODUODENOSCOPY [EGD] W/CLOSED BIOPSY (07/31/13) EXCIS DEBRIDE OF WOUND, INFECT, OR BURN (03/22/14) INFLUENZA VACCINATION (03/22/14) INSERT INDWELLING CATH (12/09/14) LAPAROSCOPIC CHOLECYSTECTOMY (07/31/13) LAPAROSCOPIC ROBOTIC ASSISTED PROCEDURE (07/31/13) OTHER ENDOSCOPY OF SM INTEST (07/31/13) OTHER SKIN & SUBQ I D (03/22/14) VACCINATION NEC (04/05/13) Family History: States: Unknown Family Hx - Social History Hx Tobacco Use: Yes Hx Alcohol Use: Yes Hx Substance Use: No (cocaine) - Immunization History Hx Tetanus Toxoid Vaccination: Yes (05/31/18) Hx Influenza Vaccination: Yes Hx Pneumococcal Vaccination: Yes Review Of Systems Constitutional: Negative for: Fever, Chills Skin: Positive for: Lesions (healing, sutured laceration) Neurological: Negative for: Weakness, Numbness, Headache Physical Exam - Physical Exam Appears: Non-toxic, No Acute Distress Skin: Warm, Dry Head: Atraumatic, Normacephalic, Other (Healing laceration to left forehead, with 6 sutures intact) Eye(s): bilateral: Normal Inspection, PERRL, EOMI Neck: Normal ROM Chest: Symmetrical Respiratory: No Accessory Muscle Use, Other (No respiratory distress) Extremity: Bilateral: Normal Color And Temperature, Normal ROM Neurological/Psych: Oriented x3 Gait: Steady ED Course And Treatment O2 Sat by Pulse Oximetry: 100 (RA) Pulse Ox Interpretation: Normal Medical Decision Making Medical Decision Making: Plan: - Suture Removal Contrary to triage, only 6 sutures noted in laceration, confirmed by nurse Aishwarya. Sutures are nylon and are non-absorbable. Unknown how many sutures were originally placed, no record in original note from 05/31. 6 sutures removed without difficulty, tolerated well by patient. Bacitracin applied to healing laceration. Patient is stable for discharge home. Diagnostic testing results and plan of care discussed with patient. Strict instructions given regarding prescription use, importance of followup, and signs/symptoms to return to ER including signs of wound infection, headache, vision changes, dizziness, or any other new/worsening symptoms. Pt verbalized understanding of discussion. Patient is A&Ox3, ambulating with steady gait, with vital signs stable for discharge. 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 - Scribe Statement The provider has reviewed the documentation as recorded by the Scribe Karen Cotton All medical record entries made by the Scribe were at my direction and personally dictated by me. I have reviewed the chart and agree that the record accurately reflects my personal performance of the history, physical exam, medical decision making, and the department course for this patient. I have also personally directed, reviewed, and agree with the discharge instructions and disposition.
[2018-06-28] MEDS ORDERED: Bacitracin 500 Units/gm Oint Foilpak UD TOP ONE (13:23)
[2018-06-28] MEDS ORDERED: Bacitracin 500 Units/gm Oint Foilpak UD ONE (13:26)
== END 2018-06-28 13:28 | disposition home or self-care (01) ==
LOC: C.ER 12:35
DX: Z48.02 Encounter for removal of sutures (principal); Z72.0 Tobacco use; E78.00 Pure hypercholesterolemia, unspecified; I12.9 Hypertensive chronic kidney disease with stage 1 through stage 4 chronic kidney disease, or unspecified chronic kidney disease; N18.9 Chronic kidney disease, unspecified; G20 Parkinson's disease

== ENCOUNTER 2018-07-23 12:46 | Emergency (ER) | payer MEDICAID ==
[2018-07-23 12:46] VITALS: BMI 24.3
--- NOTE | 2018-07-23 12:50 | C.PDOC ---
History Of Present Illness 62 y/o male, with history of parkinson's, high cholesterol, high blood pressure, and CKD, comes in to ED today with right hip pain. Patient notes of a soft mass that's easily movable in his right hip, and is concerned for a blood clot. Also notes he fell on that location a month ago and had stitches removed from right eyebrow. Denies any problem with suture site. Denies any eye issues or headache. Otherwise patient is ambulating well and normally. Patient reports he is just concerned about the soft mass. No back pain, decreased sensation in legs, enuresis or encoparesis or any other complaints. Time Seen by Provider: 07/23/18 12:49 Chief Complaint (Nursing): Lower Extremity Problem/Injury History Per: Patient History/Exam Limitations: no limitations Onset/Duration Of Symptoms: Days Current Symptoms Are (Timing): Still Present Past Medical History Reviewed: Historical Data, Nursing Documentation, Vital Signs - Medical History PMH: Anxiety, Asthma, Back Problems, Diabetes, Hepatitis (C), HTN, Hypercholesterolemia, Kidney Stones, Parkinson's Disease, Chronic Kidney Disease Denies: Seizures Surgical History: Coronary Stent (x2) - [facility] Procedures ESOPHAGOGASTRODUODENOSCOPY [EGD] W/CLOSED BIOPSY (07/31/13) EXCIS DEBRIDE OF WOUND, INFECT, OR BURN (03/22/14) INFLUENZA VACCINATION (03/22/14) INSERT INDWELLING CATH (12/09/14) LAPAROSCOPIC CHOLECYSTECTOMY (07/31/13) LAPAROSCOPIC ROBOTIC ASSISTED PROCEDURE (07/31/13) OTHER ENDOSCOPY OF SM INTEST (07/31/13) OTHER SKIN & SUBQ I D (03/22/14) VACCINATION NEC (04/05/13) Family History: States: No Known Family Hx - Social History Hx Tobacco Use: Yes Hx Alcohol Use: Yes Hx Substance Use: No (cocaine) - Immunization History Hx Tetanus Toxoid Vaccination: Yes (05/31/18) Hx Influenza Vaccination: Yes Hx Pneumococcal Vaccination: Yes Review Of Systems Constitutional: Negative for: Fever, Chills, Weakness Eyes: Negative for: Pain, Vision Change ENT: Negative for: Ear Pain, Ear Discharge, Nose Pain, Nose Discharge, Mouth Pain, Mouth Swelling Cardiovascular: Negative for: Chest Pain, Light Headedness Respiratory: Negative for: Cough, Shortness of Breath, Wheezing Gastrointestinal: Negative for: Nausea, Vomiting, Abdominal Pain, Diarrhea, Constipation, Hematochezia, Hematemesis Genitourinary: Negative for: Dysuria, Frequency Musculoskeletal: Positive for: Other (Right Hip Pain). Negative for: Neck Pain, Shoulder Pain, Arm Pain, Back Pain, Hand Pain, Leg Pain Neurological: Negative for: Headache Physical Exam - Physical Exam Appears: Well, Non-toxic, No Acute Distress Skin: Warm, Dry Head: Atraumatic, Normacephalic Eye(s): bilateral: Normal Inspection, PERRL, EOMI Ear(s): Bilateral: Normal Nose: Normal Oral Mucosa: Moist Tongue: Normal Appearing Lips: Normal Appearing Throat: Normal, No Erythema, No Exudate Neck: Normal, Normal ROM, No Midline Cervical Tenderness, Supple, Other (no meningeal signs) Chest: Symmetrical, No Deformity Cardiovascular: Rhythm Regular, No Murmur Respiratory: Normal Breath Sounds, No Rales, No Rhonchi, No Wheezing Gastrointestinal/Abdominal: Normal Exam, Soft, No Tenderness Back: Normal Inspection, No CVA Tenderness, No Vertebral Tenderness Extremity: Normal ROM, No Tenderness, No Pedal Edema, No Calf Tenderness, No Swelling (leg swelling), Other (mobile 2x2 cm mass in right lateral hip/thigh noted, easily movable, lipoma-like in texture) Extremity: Bilateral: Normal Color And Temperature, Normal ROM Neurological/Psych: Oriented x3, Normal Speech, Normal Cognition, Normal Motor, Normal Sensation Gait: Steady ED Course And Treatment O2 Sat by Pulse Oximetry: 99 (RA) Pulse Ox Interpretation: Normal - Other Rad R Hip XR X-Ray: Read By Radiologist Interpretation: IMPRESSION: No evidence of acute displaced fracture nor dislocation. Medical Decision Making Medical Decision Makin yr old male p/w R leg pain. No fall or fracture recently. Had fallen 1 month prior but no signs of hematoma or fracture noted on exam. Full ROM, N/V intact to b/l LE. No abdominal pain. No GI or complaints. Is not on blood thinners. Was concerned for ?DVT of RLE. On exam, lipoma appearing, will seek imaging. Lipoma vs DVT Plan: --Right Hip XR 1502 Hip XR unremarkable. pending venous duplex 1627 venous duplex negative pt in NAD no pain at the moment clear for d/c home w/ return indications and followup to followup w/ Dr. Ferrari regarding mass vs likely lipoma. pt agreeable to plan. 1641 pt ambulating well around ER without assistance requesting cane script, given cane script clear for d/c home Disposition - Disposition Referrals: Andi Ferrari MD [Medical Doctor] - [facility] [Outside] [facility] [Outside] [facility] [Outside] Disposition: HOME/ ROUTINE Disposition Time: 16:25 Condition: GOOD Additional Instructions: FOLLOW UP WITH DR. FERRARI REGARDING YOUR LEG MASS. IT IS LIKELY A LIPOMA BUT HAVE YOUR PRIMARY SEE YOU KELLY. TORI BARON, thank you for letting us take care of you today. Your provider was Sotero Delgado and you were treated for RT LEG PAIN. The emergency medical care you received today was directed at your acute symptoms. If you were prescribed any medication, please fill it and take as directed. It may take several days for your symptoms to resolve. Return to the Emergency Department if your symptoms worsen, do not improve, or if you have any other problems. Please contact your doctor or call one of the physicians/clinics you have been referred to that are listed on the Patient Visit Information form that is included in your discharge packet. Bring any paperwork you were given at discharge with you along with any medications you are taking to your follow up visit. Our treatment cannot replace ongoing medical care by a primary care provider outside of the emergency department. Thank you for allowing the [facility] team to be part of your care today. If you had an X-Ray or CT scan: A Radiologist will review the ED reading if any change in treatment is needed we will contact you. If you had a blood, urine, or wound culture: It will take several days for the results, if any change in treatment is needed we will contact you. If you had an STI test: It will take 48 hours for the results. Please call after 1 week if you have not heard back. Prescriptions: Cane 1 each MC DAILY #1 each Instructions: Lipoma , Hip Pain in Older People Forms: [facility] (Romanian) - Clinical Impression Clinical Impression: Leg mass, Lipoma, Leg pain - Scribe Statement The provider has reviewed the documentation as recorded by the Rahul Wolf Provider Attestation: All medical record entries made by the Scribe were at my direction and personally dictated by me. I have reviewed the chart and agree that the record accurately reflects my personal performance of the history, physical exam, medical decision making, and the department course for this patient. I have also personally directed, reviewed, and agree with the discharge instructions and disposition.
--- NOTE | 2018-07-23 15:41 | RAD ---
Date of service: 07/23/2018 PROCEDURE: Pelvis and right hip HISTORY: pain COMPARISON: Comparison made with prior CT scan abdomen pelvis 02/24/2018 which imaged the pelvis and both hips in 3 planes. TECHNIQUE: Frontal view of the pelvis and both hips as well as frogleg lateral view right hip performed FINDINGS: No evidence of acute displaced fracture nor dislocation. The osseous structures intact. Both femoral heads are appropriately located within the respective acetabula. Joint spaces are relatively preserved. Mild vascular calcifications are present. IMPRESSION: No evidence of acute displaced fracture nor dislocation.
[2018-07-23 16:48] VITALS: BP 135/66; PULSE 81; RESP 17; TEMP 98.4
--- NOTE | 2018-07-23 17:03 | VASCLAB ---
Date of service: 07/23/2018 PROCEDURE: Right Lower Extremity Venous Duplex Exam. HISTORY: pain PRIORS: None. TECHNIQUE: Right common femoral, femoral, popliteal and posterior tibial, peroneal and great saphenous veins were evaluated. Flow was assessed with color Doppler, compressibility, assessment of phasic flow and augmentation response. Report prepared by ALEXIS Funes FINDINGS: RIGHT: 1. Common Femoral Vein: 1.1. Compressibility - Fully compressible: Thrombus - None: Flow - Phasic: Augmentation -Normal: Reflux - None. 2. Femoral Vein: 2.1. Compressibility - Fully compressible: Thrombus - None: Flow - Phasic: Augmentation -Normal: Reflux - None. 3. Popliteal Vein: 3.1. Compressibility - Fully compressible: Thrombus - None: Flow - Phasic: Augmentation -Normal: Reflux - None. 4. Posterior Tibial Vein: 4.1. Compressibility - Fully compressible: Thrombus - None: Flow - Phasic: Augmentation -Normal: Reflux - None. 5. Peroneal Vein: 5.1. Compressibility - Fully compressible: Thrombus - None: Flow - Phasic: Augmentation -Normal: Reflux - None. 6. Great Saphenous Vein: 6.1. Compressibility - Fully compressible: Thrombus -None: Flow - Phasic: Augmentation - Normal: Reflux - None. OTHER FINDINGS: IMPRESSION: No evidence of deep or superficial vein thrombosis of the right lower extremity with excellent venous flow. Normal valve function noted of the right side. Normal venous flow noted in the left common femoral vein.
[2018-07-23 17:12] VITALS: O2SAT 99
== END 2018-07-23 16:47 | disposition home or self-care (01) ==
LOC: C.ER 12:46
DX: M79.604 Pain in right leg (principal); D17.23 Benign lipomatous neoplasm of skin and subcutaneous tissue of right leg; E78.00 Pure hypercholesterolemia, unspecified; I12.9 Hypertensive chronic kidney disease with stage 1 through stage 4 chronic kidney disease, or unspecified chronic kidney disease; N18.9 Chronic kidney disease, unspecified; G20 Parkinson's disease; Z72.0 Tobacco use

== ENCOUNTER 2018-08-31 18:44 | Emergency (ER) | payer MEDICAID ==
[2018-08-31 18:44] VITALS: BMI 24.3
[2018-08-31 21:34] LABS: BASO # 0.1 K/uL (0.0-0.2); EOS # 0.2 K/uL (0.0-0.7); EOS % 3.2 % (0.0-4.0); HEMOGLOBIN 14.8 g/dL (12.0-18.0); LYMPH # 2.5 K/uL (1.0-4.3); LYMPH % 35.8 % (20.0-40.0); MEAN CORPUSCULAR HEMOGLOBIN 31.5 pg (27.0-31.0); MEAN CORPUSCULAR HGB CONC 33.2 g/dL (33.0-37.0); MEAN PLATELET VOLUME 10.9 fL (7.2-11.7); MONO # 0.5 K/uL (0.0-0.8); MONO % 6.8 % (0.0-10.0); NEUT # 3.7 K/uL (1.8-7.0); NEUT % 53.2 % (50.0-75.0); RBC 4.71 Mil/uL (4.40-5.90); RED CELL DISTRIBUTION WIDTH 13.2 % (11.5-14.5); WHITE BLOOD COUNT 6.9 K/uL (4.8-10.8)
--- NOTE | 2018-08-31 21:43 | C.PDOC ---
History Of Present Illness 63 year old male drank 3 cans of beer today and developed chest pain while drinking. Patient states he is now chest pain free and feels fine. Denies SOB, other symptoms, or other drug use. At triage his bp was 214/114 but now during my evaluation he is in the 130s systolic. Time Seen by Provider: 08/31/18 20:35 Chief Complaint (Nursing): Chest Pain History Per: Patient History/Exam Limitations: no limitations Onset/Duration Of Symptoms: Hrs Current Symptoms Are (Timing): Gone Suicide/Self Injury Attempted (Context): None Modifying Factor(s): Alcohol Past Medical History Reviewed: Historical Data, Nursing Documentation, Vital Signs Vital Signs: Last Vital Signs Temp 98.6 F 08/31/18 21:08 Pulse 80 08/31/18 21:08 Resp 20 08/31/18 21:08 BP 135/74 08/31/18 21:08 Pulse Ox 96 08/31/18 21:08 - Medical History PMH: Anxiety, Asthma, Back Problems, Diabetes, Hepatitis (C), HTN, Hypercholesterolemia, Kidney Stones, Parkinson's Disease, Chronic Kidney Disease Denies: Seizures Surgical History: Coronary Stent (x2) - [facility] Procedures ESOPHAGOGASTRODUODENOSCOPY [EGD] W/CLOSED BIOPSY (07/31/13) EXCIS DEBRIDE OF WOUND, INFECT, OR BURN (03/22/14) INFLUENZA VACCINATION (03/22/14) INSERT INDWELLING CATH (12/09/14) LAPAROSCOPIC CHOLECYSTECTOMY (07/31/13) LAPAROSCOPIC ROBOTIC ASSISTED PROCEDURE (07/31/13) OTHER ENDOSCOPY OF SM INTEST (07/31/13) OTHER SKIN & SUBQ I D (03/22/14) VACCINATION NEC (04/05/13) Family History: States: Unknown Family Hx - Social History Hx Tobacco Use: Yes Hx Alcohol Use: Yes Hx Substance Use: No (cocaine) - Immunization History Hx Tetanus Toxoid Vaccination: Yes (05/31/18) Hx Influenza Vaccination: Yes Hx Pneumococcal Vaccination: Yes Review Of Systems Constitutional: Negative for: Fever, Chills Cardiovascular: Positive for: Chest Pain. Negative for: Palpitations Respiratory: Negative for: Cough, Shortness of Breath Gastrointestinal: Negative for: Nausea, Vomiting Genitourinary: Negative for: Dysuria, Hematuria Musculoskeletal: Negative for: Back Pain Skin: Negative for: Rash Neurological: Negative for: Weakness, Numbness Physical Exam - Physical Exam Appears: Non-toxic, Other (Intoxicated) Skin: Normal Color, Warm Head: Atraumatic, Normacephalic Eye(s): bilateral: Normal Inspection, PERRL, EOMI Oral Mucosa: Moist Neck: Normal, Supple Chest: Symmetrical, No Tenderness Cardiovascular: Rhythm Regular Respiratory: Normal Breath Sounds, No Rales, No Rhonchi, No Wheezing Gastrointestinal/Abdominal: Soft, No Tenderness Neurological/Psych: Oriented x3, Normal Speech, Other (Tongue fasciculations. Right hand resting tremor which patient states is baseline for him.) ED Course And Treatment - Laboratory Results Result Diagrams: 08/31/18 21:30 08/31/18 21:30 ECG: Interpreted By Me, Viewed By Me ECG Rhythm: Sinus Rhythm ECG Interpretation: Normal Interpretation Of ECG: Normal axis, normal interval, no ST elevation, on T wave changes Rate From EC O2 Sat by Pulse Oximetry: 96 (Room air) Pulse Ox Interpretation: Normal Medical Decision Making Medical Decision Making: Plan: * EKG * CXR * Blood work Patient continued to have no complaints throughout ED course. Denies chest pain. Labs, EKG, CXR done which were all unremarkable except for hyperglycemia, with no evidence of DKA. 1L NS bolus given. Repeat fingerstick 334. Patient was able to ambulate without difficulty. Sleepy, but arousable to voice and when awake was AAOx3, answering all questions. BP 179/88 at discharge, improved from arrival. Disposition - Disposition Disposition: HOME/ ROUTINE Disposition Time: 23:00 Condition: STABLE Additional Instructions: TORI BARON, thank you for letting us take care of you today. Your provider was Karime Henriquez MD and you were treated for CHEST PAIN. The emergency medical care you received today was directed at your acute symptoms. If you were prescribed any medication, please fill it and take as directed. It may take several days for your symptoms to resolve. Return to the Emergency Department if your symptoms worsen, do not improve, or if you have any other problems. Please contact your doctor or call one of the physicians/clinics you have been referred to that are listed on the Patient Visit Information form that is included in your discharge packet. Bring any paperwork you were given at discharge with you along with any medications you are taking to your follow up visit. Our treatment cannot replace ongoing medical care by a primary care provider outside of the emergency department. Thank you for allowing the [facility] team to be part of your care today. If you had an X-Ray or CT scan: A Radiologist will review the ED reading if any change in treatment is needed we will contact you. If you had a blood, urine, or wound culture: It will take several days for the results, if any change in treatment is needed we will contact you. If you had an STI test: It will take 48 hours for the results. Please call after 1 week if you have not heard back. Instructions: Hyperglycemia, Adult (DC), Alcohol Abuse and Alcoholism (DC) Forms: [employer] (Afghan) - Clinical Impression Clinical Impression: Chest pain, Alcohol intoxication, Hyperglycemia - Scribe Statement The provider has reviewed the documentation as recorded by the Scribe Keith Tsai All medical record entries made by the Scribe were at my direction and personally dictated by me. I have reviewed the chart and agree that the record accurately reflects my personal performance of the history, physical exam, medical decision making, and the department course for this patient. I have also personally directed, reviewed, and agree with the discharge instructions and disposition.
[2018-08-31 22:04] LABS: ALB/GLOB RATIO 1.4 (1.0-2.1); ALBUMIN 3.9 g/dL (3.5-5.0); ALT/SGPT 13 U/L (21-72); AST/SGOT 17 U/L (17-59); BLOOD UREA NITROGEN 15 mg/dL (9-20); CALCIUM 9.4 mg/dl (8.6-10.4); GFR NON-AFRICAN AMERICAN > 60
[2018-08-31] MEDS ORDERED: Sodium Chloride 0.9% 1,000 ML IV ONE (22:10)
[2018-08-31] MEDS ORDERED: Sodium Chloride 0.9% 1,000 ML ONE (22:11)
[2018-08-31 23:07] VITALS: BP 179/88; PULSE 69; RESP 18; TEMP 98.7
[2018-08-31 23:15] VITALS: O2SAT 96
--- NOTE | 2018-09-01 09:09 | RAD ---
Chest x-ray single frontal view HISTORY: Chest pain. COMPARISON: 02/24/2018 Findings: Biapical pleural thickening with upper lobe granulomatous changes. Mild patchy increased markings at the right lung base. Small nodular density at the left lung base may represent confluence of shadows with ribs and vessels. Tortuous aorta. Top normal heart size. Degenerative changes in the spine and shoulders. Impression: Biapical pleural thickening with upper lobe granulomatous changes. Mild patchy increased markings at the right lung base. Small nodular density at the left lung base may represent confluence of shadows with ribs and vessels. Tortuous aorta. Top normal heart size.
--- NOTE | 2018-09-01 10:50 | CARD ---
APPROVED REPORT Date of service: 08/31/2018 EKG Measurement Heart [id number] <Conclusion> Normal sinus rhythm Normal ECG
== END 2018-08-31 23:12 | disposition home or self-care (01) ==
LOC: C.ER 18:44
DX: R07.9 Chest pain, unspecified (principal); F10.129 Alcohol abuse with intoxication, unspecified; E11.65 Type 2 diabetes mellitus with hyperglycemia; E78.00 Pure hypercholesterolemia, unspecified; I12.9 Hypertensive chronic kidney disease with stage 1 through stage 4 chronic kidney disease, or unspecified chronic kidney disease; N18.9 Chronic kidney disease, unspecified; G20 Parkinson's disease; Z72.0 Tobacco use
CPT/HCPCS: 71045; 80053; 82948; 84484; 85025; 93005; 96360; 99285; J7030

== ENCOUNTER 2018-09-10 20:31 | Inpatient (IN) | payer MEDICAID | END 2018-09-13 10:13 | disposition left against medical advice (07) | DRG 143 | LOC: C.ER 20:31 → C.9E 22:02 → C.5S 23:30 | DX: R07.89 Other chest pain (principal); E86.0 Dehydration; N18.9 Chronic kidney disease, unspecified; E11.22 Type 2 diabetes mellitus with diabetic chronic kidney disease; E11.65 Type 2 diabetes mellitus with hyperglycemia; G45.9 Transient cerebral ischemic attack, unspecified; Y90.4 Blood alcohol level of 80-99 mg/100 ml; I12.9 Hypertensive chronic kidney disease with stage 1 through stage 4 chronic kidney disease, or unspecified chronic kidney disease; E78.00 Pure hypercholesterolemia, unspecified; F10.20 Alcohol dependence, uncomplicated; F17.210 Nicotine dependence, cigarettes, uncomplicated; G20 Parkinson's disease; I25.10 Atherosclerotic heart disease of native coronary artery without angina pectoris; J45.909 Unspecified asthma, uncomplicated; Z87.442 Personal history of urinary calculi; F41.9 Anxiety disorder, unspecified; F32.9 Major depressive disorder, single episode, unspecified; Z86.19 Personal history of other infectious and parasitic diseases; Z91.11 Patient's noncompliance with dietary regimen; Z91.14 Patient's other noncompliance with medication regimen; Z95.5 Presence of coronary angioplasty implant and graft ==

== ENCOUNTER 2018-09-17 16:49 | Inpatient (IN) | payer MEDICAID ==
[2018-09-17 16:53] VITALS: BMI 21.9
--- NOTE | 2018-09-17 17:11 | C.PDOC ---
History Of Present Illness 63-year-old male presents to the emergency department with complaints of right hip pain for the last four months. Patient stated he had multiple falls in May of this year, he was seen at the time and had an x-ray performed which he was told was negative. Patient reports difficulty with walking and reports walking with a cane. Patient noticed some lumps in his lateral hip area and decided to present to the ED. Time Seen by Provider: 09/17/18 17:05 Chief Complaint (Nursing): Lower Extremity Problem/Injury History Per: Patient History/Exam Limitations: no limitations Onset/Duration Of Symptoms: Other (4 months) - Hip Description Of Injury: Fell Currently Unable To: Bear Weight Past Medical History Reviewed: Historical Data, Nursing Documentation, Vital Signs Vital Signs: Last Vital Signs Temp 97.6 F 09/17/18 16:55 Pulse 60 09/17/18 16:55 Resp 18 09/17/18 16:55 BP 147/76 09/17/18 16:55 Pulse Ox 99 09/17/18 16:55 - Medical History PMH: Anxiety, Arthritis, Asthma, Back Problems, Diabetes, Hepatitis (C), HTN, Hypercholesterolemia, Kidney Stones, Parkinson's Disease, Chronic Kidney Disease Denies: Seizures Surgical History: Coronary Stent (x2) - [facility] Procedures ESOPHAGOGASTRODUODENOSCOPY [EGD] W/CLOSED BIOPSY (07/31/13) EXCIS DEBRIDE OF WOUND, INFECT, OR BURN (03/22/14) INFLUENZA VACCINATION (03/22/14) INSERT INDWELLING CATH (12/09/14) LAPAROSCOPIC CHOLECYSTECTOMY (07/31/13) LAPAROSCOPIC ROBOTIC ASSISTED PROCEDURE (07/31/13) OTHER ENDOSCOPY OF SM INTEST (07/31/13) OTHER SKIN & SUBQ I D (03/22/14) VACCINATION NEC (04/05/13) Family History: States: No Known Family Hx - Social History Hx Tobacco Use: Yes Hx Alcohol Use: Yes Hx Substance Use: No (cocaine) - Immunization History Hx Tetanus Toxoid Vaccination: Yes (05/31/18) Hx Influenza Vaccination: Yes Hx Pneumococcal Vaccination: Yes Review Of Systems Except As Marked, All Systems Reviewed And Found Negative. Constitutional: Negative for: Fever, Chills Cardiovascular: Negative for: Chest Pain Respiratory: Negative for: Cough, Shortness of Breath Musculoskeletal: Positive for: Leg Pain (right hip) Neurological: Negative for: Weakness, Numbness Physical Exam - Physical Exam Appears: Non-toxic, No Acute Distress Skin: Normal Color, Warm, Dry Head: Atraumatic, Normacephalic Eye(s): bilateral: Normal Inspection, PERRL, EOMI Neck: Normal, Supple Chest: Symmetrical Extremity: No Normal ROM, Other (soft-tissue lump in right lateral hip. Painful ROM) Neurological/Psych: Oriented x3, Normal Speech, Normal Cognition ED Course And Treatment - Laboratory Results Result Diagrams: 09/17/18 18:47 09/17/18 18:47 ECG Rhythm: Nonspecific Changes ECG Interpretation: No Acute Changes Rate From EC O2 Sat by Pulse Oximetry: 99 (RA) Pulse Ox Interpretation: Normal - Radiology CXR: Interpreted by Nj CXR Interpretation: Yes: No Acute Disease - CT Scan/US CT Lower Extremity Other Rad Studies (CT/US): Read By Radiologist, Radiology Report Reviewed CT/US Interpretation: Date of service: 09/17/2018. PROCEDURE: CT right hip. HISTORY: right hip and proximal thigh. COMPARISON: Not available. TECHNIQUE: 2.5 mm contiguous axial sections were acquired through the right hip. Sagittal and coronal images were reformatted from the axial scan. Total exam DLP: 187.62 mGy-cm. This CT exam was performed using 1 or more of the following dose reduction techniques: Automated exposure control, adjustment of the mA and/or kV according to patient size, and/or use of iterative reconstruction technique. FINDINGS: There is suspected nondisplaced fracture through the base of the greater trochanter. There is no intertrochanteric fracture appreciated. The femoral neck appears intact. No other fracture is identified. The joint spaces and articular surfaces are preserved. There is no soft tissue hematoma appreciated. IMPRESSION: Suspected nondisplaced fracture through the base of the greater trochanter, of indeterminate age. Progress Note: Plan: CT Lower Extremity Right. EKG. CMP. CBC. CXR. NaCl IV Fluids. XR Hip. Urinalysis. Spoke with Dr. Hi regarding the case, requested to admit the patient to his PMD's service. Contacted patient's PMD Dr. Ferrari who accepted the patient for admission. 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 - Scribe Statement The provider has reviewed the documentation as recorded by the Scribe (Fernando Arroyo) All medical record entries made by the Scribe were at my direction and personally dictated by me. I have reviewed the chart and agree that the record accurately reflects my personal performance of the history, physical exam, medical decision making, and the department course for this patient. I have also personally directed, reviewed, and agree with the discharge instructions and disposition. Decision To Admit - Pt Status Changed To: Hospital Disposition Of: Inpatient - Admit Certification Admit to Inpatient:: After my assessment, the patient will require hospitalization for at least two midnights. This is because of the severity of symptoms shown, intensity of services needed, and/or the medical risk in this patient being treated as an outpatient. - InPatient: Physician Admission Certification: I certify that this patient requires 2 or more midnights of care for the following reason:: Patient will need medical clearance, surgical repair of hip fx that will take more than 2 days of hospitalization. - . Bed Request Type: Regular Admitting Physician: Radha Ferrari Patient Diagnosis: Hip fracture
--- NOTE | 2018-09-17 18:01 | CT ---
Date of service: 09/17/2018 PROCEDURE: CT right hip HISTORY: right hip and proximal thigh COMPARISON: Not available TECHNIQUE: 2.5 mm contiguous axial sections were acquired through the right hip. Sagittal and coronal images were reformatted from the axial scan. Total exam DLP: 187.62 mGy-cm This CT exam was performed using 1 or more of the following dose reduction techniques: Automated exposure control, adjustment of the mA and/or kV according to patient size, and/or use of iterative reconstruction technique. FINDINGS: There is suspected nondisplaced fracture through the base of the greater trochanter. There is no intertrochanteric fracture appreciated. The femoral neck appears intact. No other fracture is identified. The joint spaces and articular surfaces are preserved. There is no soft tissue hematoma appreciated. IMPRESSION: Suspected nondisplaced fracture through the base of the greater trochanter, of indeterminate age.
[2018-09-17] MEDS ORDERED: Sodium Chloride 0.9% 1,000 ML IV ONE (18:24)
[2018-09-17 18:54] LABS: BASO # 0.1 K/uL (0.0-0.2); BASO % 0.9 % (0.0-2.0); EOS # 0.2 K/uL (0.0-0.7); EOS % 3.1 % (0.0-4.0); LYMPH # 2.1 K/uL (1.0-4.3); LYMPH % 28.5 % (20.0-40.0); MEAN CELL VOLUME 94.7 fL (80.0-94.0); MEAN CORPUSCULAR HEMOGLOBIN 32.4 pg (27.0-31.0); MEAN CORPUSCULAR HGB CONC 34.2 g/dL (33.0-37.0); MEAN PLATELET VOLUME 10.9 fL (7.2-11.7); MONO # 0.4 K/uL (0.0-0.8); MONO % 5.6 % (0.0-10.0); NEUT # 4.5 K/uL (1.8-7.0); NEUT % 61.9 % (50.0-75.0); RBC 4.66 Mil/uL (4.40-5.90); RED CELL DISTRIBUTION WIDTH 13.2 % (11.5-14.5); WHITE BLOOD COUNT 7.3 K/uL (4.8-10.8)
[2018-09-17 18:57] LABS: HEMOGLOBIN 15.1 g/dL (12.0-18.0)
[2018-09-17 19:07] LABS: ALB/GLOB RATIO 1.4 (1.0-2.1); ALBUMIN 4.1 g/dL (3.5-5.0); ALT/SGPT 22 U/L (21-72); AST/SGOT 21 U/L (17-59); BLOOD UREA NITROGEN 15 mg/dL (9-20); CALCIUM 9.7 mg/dl (8.6-10.4); GFR NON-AFRICAN AMERICAN > 60
[2018-09-17 19:14] VITALS: RESP 20
[2018-09-17] MEDS ORDERED: Morphine 4 MG/ML VIAL ONE (19:39)
[2018-09-17] MEDS ORDERED: Sodium Chloride 0.9% 1,000 ML ONE (19:41)
[2018-09-17] MEDS: (Novolog) Insulin Aspart, Recombinant 100 u/ml 10 ml vial SC SCH (21:29)
[2018-09-17] MEDS ORDERED: Dextrose 5%/0.45% NS 1,000 ML IV SCH (21:30)
[2018-09-18 07:10] LABS: URINE BACTERIA RARE (<OCC); URINE BILIRUBIN NEGATIVE (NEGATIVE); URINE BLOOD NEGATIVE (NEGATIVE); URINE CLARITY Clear (Clear); URINE COLOR Yellow (YELLOW); URINE GLUCOSE (UA) 3+ mg/dL (Normal); URINE LEUKOCYTE ESTERASE NEG Leu/uL (Negative); URINE PROTEIN NEGATIVE (NEGATIVE)
[2018-09-18] MEDS ORDERED: Sodium Chloride 0.45% 1,000 ML IV SCH (07:30)
[2018-09-18] MEDS: (Novolog) Insulin Aspart, Recombinant 100 u/ml 10 ml vial SC SCH ×4 (07:44→21:31)
[2018-09-18 07:59] LABS: PROTHROMBIN TIME 11.2 SECONDS (9.7-12.2)
--- NOTE | 2018-09-18 08:48 | RAD ---
Chest x-ray single frontal view History: Preoperative evaluation. Comparison: 08/31/2018 Findings: No focal infiltrate or effusion. Biapical pleural thickening with upper lobe granulomatous changes. Heart size is within normal limits. Atherosclerotic calcification at the aortic knob. Degenerative changes in the spine and shoulders. Impression: No focal infiltrate or effusion.
--- NOTE | 2018-09-18 09:18 | CP.PCM.CON ---
History of Present Illness - History of Present Illness History of Present Illness: Orthopedic consult: Dr. Hi Patient is a 63 y/o male c/o R hip pain following an injury yesterday. He reports falling outdoors onto his right side after his right knee gave way due to weakness. He also notes that he had a significant fall down an escalator 4 months ago. He did not c/o of R hip pain following the injury as he was evaluated. One month ago, he was seen in [facility] for right hip pain, found to be negative for any acute fractures and was recommended outpatient PT but never attended as session. He has been ambulating with a cane since that time. The pain currently is mild, dull and intermittent. The pain worsens with WB and standing for long periods. He admits to chronic numbness and tingling to RLE due to diabetic neuropathy. He denies any CP/SOB/N/V/D/fever/dysuria/melena. PMH: HTN, HLD, NIDDM, Parkinson's dz, CKD PSH: cardiac stents x 2 meds: as per med rec allergy: NKDA SH: tobacco 1 1/2 ppd x 50 yrs, ETOH socially, denies drug use Review of Systems - Review of Systems All systems: reviewed and no additional remarkable complaints except Review of Systems: as per HPI Past Patient History - Infectious Disease Hx of Infectious Diseases: None - Past Medical History & Family History Past Medical History?: Yes Past Family History: Reviewed and not pertinent - Past Social History Smoking Status: Heavy Smoker > 10 Cigarettes Daily Alcohol: Social - CARDIAC Hx Hypercholesterolemia: Yes Hx Hypertension: Yes - PULMONARY Hx Asthma: Yes - NEUROLOGICAL Hx Parkinson's Disease: Yes Hx Seizures: No - HEENT Hx HEENT Problems: No - RENAL Hx Chronic Kidney Disease: Yes Hx Kidney Stones: Yes - ENDOCRINE/METABOLIC Hx Endocrine Disorders: Yes Hx Diabetes Mellitus Type 1: Yes - HEMATOLOGICAL/ONCOLOGICAL Hx Cancer: No - INTEGUMENTARY Hx Dermatological Problems: No - MUSCULOSKELETAL/RHEUMATOLOGICAL Hx Arthritis: Yes Hx Falls: Yes - PSYCHIATRIC Hx Anxiety: Yes Hx Substance Use: No (cocaine) - SURGICAL HISTORY Hx Coronary Stent: Yes (x2) - ANESTHESIA Hx Anesthesia: Yes Hx Anesthesia Reactions: No Hx Malignant Hyperthermia: No Has any member of the family had a problem w/ anesthesia?: No Meds Allergies/Adverse Reactions: Allergies Allergy/AdvReac Type Severity Reaction Status Date / Time No Known Allergies Allergy Verified 09/17/18 16:59 - Medications Medications: Current Medications Escitalopram Oxalate (Lexapro) 10 mg PO DAILY [facility] Gabapentin (Neurontin) 300 mg PO BID [facility] Sodium Chloride (Sodium Chloride 0.45%) 1,000 mls @ 100 mls/hr IV .Q10H [facility] Last Admin: 09/18/18 07:43 Dose: 100 mls/hr Insulin Aspart (Novolog) 0 unit SC [facility]; Protocol Last Admin: 09/18/18 07:44 Dose: 6 units Insulin Glargine (Lantus) 20 unit SC [facility] Ketorolac Tromethamine (Toradol) 30 mg IVP Q6 PRN PRN Reason: Pain, moderate (4-7) Last Admin: 09/18/18 07:44 Dose: 30 mg Metformin HCl (Glucophage) 500 mg PO BID [facility] Metoprolol Tartrate (Lopressor) 25 mg PO 0800,1800 [facility] Last Admin: 09/17/18 21:29 Dose: Not Given Primidone (Mysoline) 50 mg PO HS [facility] Last Admin: 09/17/18 22:07 Dose: 50 mg Quetiapine Fumarate (Seroquel) 50 mg PO DAILY [facility] Physical Exam - Constitutional Appears: Well, No Acute Distress - Head Exam Head Exam: ATRAUMATIC, NORMOCEPHALIC - Eye Exam Eye Exam: EOMI, Normal appearance - ENT Exam ENT Exam: Mucous Membranes Moist - Respiratory Exam Respiratory Exam: NORMAL BREATHING PATTERN - Extremities Exam Additional comments: R hip: mild tenderness over greater trochanter no groin tenderness no swelling/ecchymosis/lesions sensation intact SP/DP/TN motor intact EHl/FHL/TA/G pedal pulses intact calves soft NT L hip: no tenderness no swelling/ecchymosis/lesions sensation intact SP/DP/TN motor intact EHl/FHL/TA/G pedal pulses intact calves soft NT - Neurological Exam Neurological exam: Alert, CN II-XII Intact, Oriented x3 - Psychiatric Exam Psychiatric exam: Normal Affect, Normal Mood - Skin Skin Exam: Normal Color, Warm Results - Vital Signs Recent Vital Signs: Last Vital Signs Temp 98.4 F 09/18/18 07:00 Pulse 60 09/18/18 07:00 Resp 20 09/18/18 07:00 BP 154/83 H 09/18/18 07:00 Pulse Ox 99 09/18/18 07:00 - Labs Result Diagrams: 09/17/18 18:47 09/17/18 18:47 Labs: Laboratory Results - last 24 hr 09/17/18 09/17/18 09/17/18 18:47 18:47 21:25 WBC 7.3 D RBC 4.66 Hgb 15.1 D Hct 44.1 MCV 94.7 H MCH 32.4 H MCHC 34.2 RDW 13.2 Plt Count 142 MPV 10.9 Neut % (Auto) 61.9 Lymph % (Auto) 28.5 Jerome % (Auto) 5.6 Eos % (Auto) 3.1 Baso % (Auto) 0.9 Neut # (Auto) 4.5 Lymph # (Auto) 2.1 Jerome # (Auto) 0.4 Eos # (Auto) 0.2 Baso # (Auto) 0.1 PT INR APTT Sodium 137 Potassium 4.8 Chloride 95 L Carbon Dioxide 33 H Anion Gap 14 BUN 15 Creatinine 0.7 L Est GFR ( Amer) > 60 Est GFR (Non-Af Amer) > 60 POC Glucose (mg/dL) 234 H Random Glucose 240 H Calcium 9.7 Total Bilirubin 0.3 AST 21 ALT 22 Alkaline Phosphatase 91 Total Protein 7.1 Albumin 4.1 Globulin 3.0 Albumin/Globulin Ratio 1.4 Urine Color Urine Clarity Urine pH Ur Specific [place] Urine Protein Urine Glucose (UA) Urine Ketones Urine Blood Urine Nitrate Urine Bilirubin Urine Urobilinogen Ur Leukocyte Esterase Urine WBC (Auto) Urine RBC (Auto) Urine Bacteria 09/18/18 09/18/18 09/18/18 06:36 07:05 07:44 WBC RBC Hgb Hct MCV MCH MCHC RDW Plt Count MPV Neut % (Auto) Lymph % (Auto) Jerome % (Auto) Eos % (Auto) Baso % (Auto) Neut # (Auto) Lymph # (Auto) Jerome # (Auto) Eos # (Auto) Baso # (Auto) PT 11.2 INR 1.0 APTT 32.0 Sodium Potassium Chloride Carbon Dioxide Anion Gap BUN Creatinine Est GFR ( Amer) Est GFR (Non-Af Amer) POC Glucose (mg/dL) 452 H* Random Glucose Calcium Total Bilirubin AST ALT Alkaline Phosphatase Total Protein Albumin Globulin Albumin/Globulin Ratio Urine Color Yellow Urine Clarity Clear Urine pH 6.0 Ur Specific [place] 1.029 Urine Protein Negative Urine Glucose (UA) 3+ H Urine Ketones Negative Urine Blood Negative Urine Nitrate Negative Urine Bilirubin Negative Urine Urobilinogen 2.0 Ur Leukocyte Esterase Neg Urine WBC (Auto) < 1 Urine RBC (Auto) 1 Urine Bacteria Rare - Impressions Impression: Accession No. : [id number] Patient Name / ID : LORAINE Powers / [id number] Exam Date : 09/17/2018 18:25:31 ( Approved ) Study Comment : Sex / Age : M / 63Y Creator : Daniel Singer MD Dictator : Daniel Singer MD Lifeguard : Commercial Truck Driver : Daniel Singer MD Approver2 : Report Date : 09/18/2018 09:30:04 My Comment : Pelvis and right hip three views History: Pain. Comparison: CT dated 09/17/2018. Findings: Right hip: Diffuse osteopenia. Again identified is a questionable curvilinear lucency at the base of the right greater trochanter which may represent nondisplaced fracture. Correlation with MRI may be helpful for further evaluation if clinically indicated. Moderate degenerative changes of the right hip joint space with joint space narrowing and subchondral sclerosis. Vascular calcifications. Moderate narrowing of the left hip joint space with subchondral sclerosis. Degenerative changes in the lower lumbar spine and pubic symphysis. Impression: Again identified is a questionable curvilinear lucency at the base of the right greater trochanter which may represent nondisplaced fracture. Correlation with MRI may be helpful for further evaluation if clinically indicated. Moderate degenerative changes of the right hip joint space with joint space narrowing and subchondral sclerosis. Vascular calcifications. Moderate narrowing of the left hip joint space with subchondral sclerosis. Degenerative changes in the lower lumbar spine and pubic symphysis. Accession No. : [id number] Patient Name / ID : LORAINE Powers / [id number] Exam Date : 09/17/2018 17:34:38 ( Approved ) Study Comment : Sex / Age : M / 63Y Creator : Bk Watts Dictator : Guy Forbes MD Lifeguard : Commercial Truck Driver : Guy Forbes MD Approver2 : Report Date : 09/17/2018 17:43:44 My Comment : Date of service: 09/17/2018 PROCEDURE: CT right hip HISTORY: right hip and proximal thigh COMPARISON: Not available TECHNIQUE: 2.5 mm contiguous axial sections were acquired through the right hip. Sagittal and coronal images were reformatted from the axial scan. Total exam DLP: 187.62 mGy-cm This CT exam was performed using 1 or more of the following dose reduction techniques: Automated exposure control, adjustment of the mA and/or kV according to patient size, and/or use of iterative reconstruction technique. FINDINGS: There is suspected nondisplaced fracture through the base of the greater trochanter. There is no intertrochanteric fracture appreciated. The femoral neck appears intact. No other fracture is identified. The joint spaces and articular surfaces are preserved. There is no soft tissue hematoma appreciated. IMPRESSION: Suspected nondisplaced fracture through the base of the greater trochanter, of indeterminate age. Assessment & Plan (1) Fracture of greater trochanter of right femur Assessment and Plan: Patient with an age indeterminate right hip greater trochanteric fracture -No acute orthopedic intervention needed at this time -nonoperative as per Dr. Hi -PT/OT 10% FFWB -DVT ppx -orthopedically stable -above d/w Dr. Hi who agrees Status: Acute - Date & Time Date: 09/18/18 Time: 09:00
--- NOTE | 2018-09-18 09:33 | RAD ---
Pelvis and right hip three views History: Pain. Comparison: CT dated 09/17/2018. Findings: Right hip: Diffuse osteopenia. Again identified is a questionable curvilinear lucency at the base of the right greater trochanter which may represent nondisplaced fracture. Correlation with MRI may be helpful for further evaluation if clinically indicated. Moderate degenerative changes of the right hip joint space with joint space narrowing and subchondral sclerosis. Vascular calcifications. Moderate narrowing of the left hip joint space with subchondral sclerosis. Degenerative changes in the lower lumbar spine and pubic symphysis. Impression: Again identified is a questionable curvilinear lucency at the base of the right greater trochanter which may represent nondisplaced fracture. Correlation with MRI may be helpful for further evaluation if clinically indicated. Moderate degenerative changes of the right hip joint space with joint space narrowing and subchondral sclerosis. Vascular calcifications. Moderate narrowing of the left hip joint space with subchondral sclerosis. Degenerative changes in the lower lumbar spine and pubic symphysis.
--- NOTE | 2018-09-18 11:17 | CP.PCM.PN ---
Subjective - Date & Time of Evaluation Date of Evaluation: 09/18/18 Time of Evaluation: 09:15 - Subjective Subjective: Medicine Progress Note for Dr. Ferrari 63 year old male with history of hypertension, uncontrolled diabetes, hyperlipidemia, and Parkinson's presents to the ED for right hip pain. Patient reports to have frequents falls due to weakness. The pain started about 4 months ago and it became more painful 2 days ago. His hip was evaluated in the past and was told there was no fracture. The pain is worse with walking and moving around and improves with resting. Patient seen and examined at bedside. Patient had elevated glucose earlier this morning due to missing his night time insulin. Patient still complains of pain at right hip. He denies loss of consciousness, fever, chills, dizziness, shortness of breath, chest pain, nausea, vomiting, urinary or fecal incontinence. Objective - Vital Signs/Intake and Output Vital Signs (last 24 hours): Temp Pulse Resp BP Pulse Ox 98.4 F 60 20 146/83 99 09/18/18 07:00 09/18/18 07:00 09/18/18 07:00 09/18/18 09:24 09/18/18 07:00 Intake and Output: 09/18/18 09/18/18 06:59 18:59 Intake Total 800 Output Total 600 Balance 200 - Medications Medications: Current Medications Escitalopram Oxalate (Lexapro) 10 mg PO DAILY [facility] Last Admin: 09/18/18 09:24 Dose: 10 mg Gabapentin (Neurontin) 300 mg PO BID [facility] Last Admin: 09/18/18 09:24 Dose: 300 mg Insulin Aspart (Novolog) 0 unit SC [facility]; Protocol Last Admin: 09/18/18 07:44 Dose: 6 units Insulin Glargine (Lantus) 20 unit SC [facility] Ketorolac Tromethamine (Toradol) 30 mg IVP Q6 PRN PRN Reason: Pain, moderate (4-7) Last Admin: 09/18/18 07:44 Dose: 30 mg Metformin HCl (Glucophage) 500 mg PO BID [facility] Last Admin: 09/18/18 10:05 Dose: 500 mg Metoprolol Tartrate (Lopressor) 25 mg PO 0800,1800 [facility] Last Admin: 09/18/18 09:24 Dose: 25 mg Primidone (Mysoline) 50 mg PO [facility] Last Admin: 09/17/18 22:07 Dose: 50 mg Quetiapine Fumarate (Seroquel) 50 mg PO DAILY [facility] Last Admin: 09/18/18 09:24 Dose: 50 mg - Labs Labs: 09/17/18 18:47 09/17/18 18:47 PT 11.2 SECONDS (9.7-12.2) 09/18/18 07:44 INR 1.0 09/18/18 07:44 APTT 32.0 SECONDS (21-34) 09/18/18 07:44 - Constitutional Appears: Well, No Acute Distress - Head Exam Head Exam: ATRAUMATIC, NORMOCEPHALIC - Eye Exam Eye Exam: EOMI, Normal appearance Pupil Exam: NORMAL ACCOMODATION, PERRL - ENT Exam ENT Exam: Mucous Membranes Moist, Normal Exam - Neck Exam Neck Exam: Full ROM, Normal Inspection. absent: Lymphadenopathy - Respiratory Exam Respiratory Exam: Clear to Ausculation Bilateral, NORMAL BREATHING PATTERN. absent: Rhonchi, Wheezes, Respiratory Distress - Cardiovascular Exam Cardiovascular Exam: REGULAR RHYTHM, +S1, +S2. absent: Murmur - GI/Abdominal Exam GI & Abdominal Exam: Soft, Normal Bowel Sounds. absent: Tenderness - Extremities Exam Extremities Exam: Normal Capillary Refill, Tenderness (right greater trochanter tenderness, limited range of motion on right hip due to pain). absent: Calf Tenderness - Neurological Exam Neurological Exam: Alert, Awake, Oriented x3 - Psychiatric Exam Psychiatric exam: Normal Affect, Normal Mood - Skin Skin Exam: Dry, Warm Assessment and Plan - Assessment and Plan (Free Text) Assessment: Right hip greater trochanteric fracture -Lower extremity CT shows suspected nondisplaced fracture through the base of the greater trochanter, of indeterminate age. -Orthopedic consulted, Dr. Hi help appreciated -No acute surgical intervention at this time -PT/OT -Toradol 30mg IV Q6prn Diabetes -Metformin 500mg po BID -Lantus 20u HS -ISS -Hypoglycemic protocol -CCD Hypertension -Metoprolol 25mg BID Schizophrenia -Seroquel 50mg Prophylactic measures -Lovenox -Protonix -PT/OT Case discussed with Dr. Ferrari
[2018-09-18] MEDS ORDERED: Dextrose 50% SYRINGE Inj (50 ml) IV PRN (13:30)
[2018-09-18] MEDS ORDERED: Glucagon Recombinant 1 mg Inj IM PRN (13:30)
[2018-09-18] MEDS: (Lantus) Insulin Glargine, Recombinant SC SCH (22:11)
[2018-09-19 07:36] LABS: LYMPH # 1.6 K/uL (1.0-4.3); MEAN CORPUSCULAR HEMOGLOBIN 32.8 pg (27.0-31.0); MONO # 0.3 K/uL (0.0-0.8); NEUT # 3.7 K/uL (1.8-7.0); WHITE BLOOD COUNT 5.8 K/uL (4.8-10.8)
[2018-09-19 07:46] LABS: BASO # 0.1 K/uL (0.0-0.2); BASO % 0.9 % (0.0-2.0); EOS # 0.2 K/uL (0.0-0.7); EOS % 2.6 % (0.0-4.0); HEMOGLOBIN 13.4 g/dL (12.0-18.0); LYMPH % 27.3 % (20.0-40.0); MEAN CELL VOLUME 95.3 fL (80.0-94.0); MEAN CORPUSCULAR HGB CONC 34.4 g/dL (33.0-37.0); MEAN PLATELET VOLUME 11.5 fL (7.2-11.7); MONO % 5.2 % (0.0-10.0); NRBC % 0.2 % (0.0-2.0); RBC 4.08 Mil/uL (4.40-5.90); RED CELL DISTRIBUTION WIDTH 13.1 % (11.5-14.5)
--- NOTE | 2018-09-19 07:53 | CP.PCM.PN ---
Subjective - Date & Time of Evaluation Date of Evaluation: 09/19/18 Time of Evaluation: 07:52 - Subjective Subjective: Ortho f/u Dr. Hi Patient states he has continued pain in his right hip, worst in front of thigh and in buttock. He says he tolerated PT ok yesterday he was able to walk a little and maintain TTWB. He denies numbness/tingling. Denies change in bowel/bladder. Denies CP/SOB/dizziness. Review of Systems - Review of Systems All systems: reviewed and no additional remarkable complaints except - Cardiovascular Cardiovascular: As Per HPI - Respiratory Respiratory: As Per HPI - Gastrointestinal Gastrointestinal: UNREMARKABLE - Musculoskeletal Musculoskeletal: As Par HPI - Integumentary Integumentary: UNREMARKABLE - Hematologic/Lymphatic Hematologic: UNREMARKABLE Objective - Vital Signs/Intake and Output Vital Signs (last 24 hours): Temp Pulse Resp BP Pulse Ox 98 F 56 L 20 126/70 94 L 09/18/18 23:25 09/18/18 23:25 09/18/18 23:25 09/18/18 23:25 09/18/18 23:25 - Medications Medications: Current Medications Dextrose (Dextrose 50% Inj) 0 ml IV STAT PRN; Protocol PRN Reason: Hypoglycemia Protocol Dextrose (Glutose 15) 0 gm PO ONCE PRN; Protocol PRN Reason: Hypoglycemia Protocol Enoxaparin Sodium (Lovenox) 40 mg SC DAILY [facility] Escitalopram Oxalate (Lexapro) 10 mg PO DAILY [facility] Last Admin: 09/18/18 09:24 Dose: 10 mg Gabapentin (Neurontin) 300 mg PO BID [facility] Last Admin: 09/18/18 17:27 Dose: 300 mg Glucagon (Glucagen Diagnostic Kit) 0 mg IM STAT PRN; Protocol PRN Reason: Hypoglycemia Protocol Dextrose (Dextrose 5% In Water 1000 Ml) 1,000 mls @ 0 mls/hr IV .Q0M PRN; Protocol PRN Reason: Hypoglycemia Protocol Insulin Aspart (Novolog) 0 unit SC ACHS [facility]; Protocol Last Admin: 09/18/18 21:31 Dose: Not Given Insulin Glargine (Lantus) 20 unit SC HS [facility] Last Admin: 09/18/18 22:11 Dose: 20 unit Ketorolac Tromethamine (Toradol) 30 mg IVP Q6 PRN PRN Reason: Pain, moderate (4-7) Last Admin: 09/18/18 22:11 Dose: 30 mg Metformin HCl (Glucophage) 500 mg PO BID [facility] Last Admin: 09/18/18 17:28 Dose: 500 mg Metoprolol Tartrate (Lopressor) 25 mg PO 0800,1800 [facility] Last Admin: 09/18/18 17:47 Dose: Not Given Pantoprazole Sodium (Protonix Ec Tab) 40 mg PO DAILY [facility] Primidone (Mysoline) 50 mg PO HS [facility] Last Admin: 09/18/18 22:11 Dose: 50 mg Quetiapine Fumarate (Seroquel) 50 mg PO DAILY [facility] Last Admin: 09/18/18 09:24 Dose: 50 mg - Labs Labs: 09/17/18 18:47 09/17/18 18:47 PT 11.2 SECONDS (9.7-12.2) 09/18/18 07:44 INR 1.0 09/18/18 07:44 APTT 32.0 SECONDS (21-34) 09/18/18 07:44 - Constitutional Appears: Well, No Acute Distress - Head Exam Head Exam: ATRAUMATIC - Neck Exam Neck Exam: Normal Inspection - Extremities Exam Additional comments: TTP lateral thigh/ant thigh, mild sensation intact L2-S1 BLE calves soft NT neg homans +DP/PT pulses 5/5 strength BLE - Neurological Exam Neurological Exam: Alert, Awake, Oriented x3 Neuro motor strength exam: Left Lower Extremity: 5, Right Lower Extremity: 5 - Psychiatric Exam Psychiatric exam: Normal Affect, Normal Mood - Skin Skin Exam: Dry, Intact, Normal Color, Warm Assessment and Plan (1) Fracture of greater trochanter of right femur Assessment & Plan: ?acuity nondisplaced non operative TTWB RLE cont PT/OT VTE proph lovenox, venodynes ortho stable for d/c f/u Dr. Hi as outpt Status: Acute (2) Lumbar spinal stenosis Assessment & Plan: recommend pain mgmt continue PT/OT Status: Acute (3) Lumbar disc disease with radiculopathy Status: Acute (4) Primary osteoarthritis of right hip Assessment & Plan: patient can follow up as outpatient at this time, DM is poorly controlled and high risk for hip replacement recommend follow up as outpatient, recommend A1C < 8 to minimize infection risk Status: Chronic Radiology Interpretation - Radiology Interpretation #3 Interpretation: atient Name / ID : LORAINE Powers / [id number] Exam Date : 09/12/2018 17:41:02 ( Approved ) Study Comment : Sex / Age : M / 63Y Creator : Elio Longoria MD Dictator : Elio Longoria MD Configuration Manager : Telemetry Nurse : Elio Longoria MD Approver2 : Report Date : 09/13/2018 10:45:54 My Comment : Date of service: 09/12/2018 PROCEDURE: MR LUMBAR SPINE WITH AND WITHOUT CONTRAST HISTORY: radiculopathy; right leg numbness, pain since may. COMPARISON: None available. TECHNIQUE: Multiecho multiplanar sequences were performed through the lumbar spine with and without the use of intravenous contrast (Omniscan 12 cc). FINDINGS: Normal lumbar lordosis. Vertebral body heights are preserved. Marrow signal unremarkable. Diffuse disc desiccation is appreciated throughout the lumbar spine although adequate disc height preservation is appreciated th roughout. Conus medullaris unremarkable at the level of L1 vertebral body. Prevertebral and paraspinal soft tissues are unremarkable. No abnormal intrathecal or epidural enhancement identified throughout the lumbar spine. T12-L1: No disc herniation, spinal canal stenosis or neural foraminal narrowing. L1-2: No disc herniation, spinal canal stenosis or neural foraminal narrowing. L2-3: No disc herniation, spinal canal stenosis or neural foraminal narrowing. L3-4: No disc herniation, spinal canal stenosis or neural foraminal narrowing. L4-5: There is a small central disc protrusion overlying posterior disc bulge which combines with moderate to severe facet joint degenerative arthropathy and causes a [id number] central canal stenosis. No significant neural foraminal stenosis bilaterally. L5-S1: An additional small central disc protrusion overlies generalized disc bulging causing mild central canal stenosis concentrated at the bilateral lateral recesses. Contribution to the lateral recess stenosis is made by moderate facet joint degenerative arthropathy. No significant neural foraminal stenosis bilaterally. OTHER FINDINGS: None. IMPRESSION: Central disc protrusions are identified at L4-5 and L5-S1 overlying posterior disc bulging and combining with facet joint degenerative changes resulting in [id number] central canal stenosis at L4-5 and mild at L5-S1. No large disc herniation throughout the examination or severe stenosis. No neural foraminal stenosis throughout the exam. No abnormal intrathecal or epidural enhancement. Conus medullaris appears within normal limits as discussed above.
[2018-09-19] MEDS: (Novolog) Insulin Aspart, Recombinant 100 u/ml 10 ml vial SC SCH ×4 (07:59→22:00)
[2018-09-19 08:23] LABS: ALB/GLOB RATIO 1.4 (1.0-2.1); ALBUMIN 3.2 g/dL (3.5-5.0); ALT/SGPT 24 U/L (21-72); AST/SGOT 18 U/L (17-59); BLOOD UREA NITROGEN 36 mg/dL (9-20); CALCIUM 8.7 mg/dl (8.6-10.4); GFR NON-AFRICAN AMERICAN > 60
--- NOTE | 2018-09-19 09:02 | CP.PCM.PN ---
Subjective - Date & Time of Evaluation Date of Evaluation: 09/19/18 Time of Evaluation: 09:01 - Subjective Subjective: Medicine Progress Note for Dr. Ferrari Patient seen and examined at bedside. No acute events overnight. Patient still complains of pain at right hip. He participated in physical therapy yesterday. He denies loss of consciousness, fever, chills, dizziness, shortness of breath, chest pain, nausea, vomiting, urinary or fecal incontinence. Objective - Vital Signs/Intake and Output Vital Signs (last 24 hours): Temp Pulse Resp BP Pulse Ox 98 F 56 L 20 126/70 94 L 09/18/18 23:25 09/18/18 23:25 09/18/18 23:25 09/18/18 23:25 09/18/18 23:25 - Medications Medications: Current Medications Dextrose (Dextrose 50% Inj) 0 ml IV STAT PRN; Protocol PRN Reason: Hypoglycemia Protocol Dextrose (Glutose 15) 0 gm PO ONCE PRN; Protocol PRN Reason: Hypoglycemia Protocol Enoxaparin Sodium (Lovenox) 40 mg SC DAILY [facility] Escitalopram Oxalate (Lexapro) 10 mg PO DAILY [facility] Last Admin: 09/18/18 09:24 Dose: 10 mg Gabapentin (Neurontin) 300 mg PO BID [facility] Last Admin: 09/18/18 17:27 Dose: 300 mg Glucagon (Glucagen Diagnostic Kit) 0 mg IM STAT PRN; Protocol PRN Reason: Hypoglycemia Protocol Dextrose (Dextrose 5% In Water 1000 Ml) 1,000 mls @ 0 mls/hr IV .Q0M PRN; Protocol PRN Reason: Hypoglycemia Protocol Insulin Aspart (Novolog) 0 unit SC ACHS [facility]; Protocol Last Admin: 09/19/18 07:59 Dose: 3 units Insulin Glargine (Lantus) 20 unit SC HS [facility] Last Admin: 09/18/18 22:11 Dose: 20 unit Ketorolac Tromethamine (Toradol) 30 mg IVP Q6 PRN PRN Reason: Pain, moderate (4-7) Last Admin: 09/18/18 22:11 Dose: 30 mg Metformin HCl (Glucophage) 500 mg PO BID [facility] Last Admin: 09/18/18 17:28 Dose: 500 mg Metoprolol Tartrate (Lopressor) 25 mg PO 0800,1800 [facility] Last Admin: 09/18/18 17:47 Dose: Not Given Pantoprazole Sodium (Protonix Ec Tab) 40 mg PO DAILY [facility] Primidone (Mysoline) 50 mg PO HS [facility] Last Admin: 09/18/18 22:11 Dose: 50 mg Quetiapine Fumarate (Seroquel) 50 mg PO DAILY [facility] Last Admin: 09/18/18 09:24 Dose: 50 mg - Labs Labs: 09/19/18 07:14 09/19/18 07:14 PT 11.2 SECONDS (9.7-12.2) 09/18/18 07:44 INR 1.0 09/18/18 07:44 APTT 32.0 SECONDS (21-34) 09/18/18 07:44 - Additional Findings Additional findings: - Constitutional Appears: Well, No Acute Distress - Head Exam Head Exam: ATRAUMATIC, NORMOCEPHALIC - Eye Exam Eye Exam: EOMI, Normal appearance Pupil Exam: NORMAL ACCOMODATION, PERRL - ENT Exam ENT Exam: Mucous Membranes Moist, Normal Exam - Neck Exam Neck Exam: Full ROM, Normal Inspection. absent: Lymphadenopathy - Respiratory Exam Respiratory Exam: Clear to Ausculation Bilateral, NORMAL BREATHING PATTERN. absent: Rhonchi, Wheezes, Respiratory Distress - Cardiovascular Exam Cardiovascular Exam: REGULAR RHYTHM, +S1, +S2. absent: Murmur - GI/Abdominal Exam GI & Abdominal Exam: Soft, Normal Bowel Sounds. absent: Tenderness - Extremities Exam Extremities Exam: Normal Capillary Refill, Tenderness (right greater trochanter tenderness, limited range of motion on right hip due to pain). absent: Calf Tenderness - Neurological Exam Neurological Exam: Alert, Awake, Oriented x3 - Psychiatric Exam Psychiatric exam: Normal Affect, Normal Mood - Skin Skin Exam: Dry, Warm Assessment and Plan - Assessment and Plan (Free Text) Assessment: Right hip greater trochanteric fracture -Lower extremity CT shows suspected nondisplaced fracture through the base of the greater trochanter, of indeterminate age. -Orthopedic consulted, Dr. Hi help appreciated -No acute surgical intervention at this time -PT/OT, PT recommending subacute -Toradol 30mg IV Q6prn -Tramadol 25mg PO TID PRN Diabetes -Metformin 500mg po BID -Lantus 20u HS -ISS -Hypoglycemic protocol -CCD Hypertension -Metoprolol 25mg BID Schizophrenia -Seroquel 50mg Prophylactic measures -Lovenox -Protonix -PT/OT Dispo: Pending authorization to [facility] Case discussed with Dr. Ferrari
[2018-09-19] MEDS: Enoxaparin 40 mg Syringe SC SCH (10:00)
[2018-09-19] MEDS: Pantoprazole 40 mg EC Tab PO SCH (10:00)
--- NOTE | 2018-09-19 12:48 | CARD ---
APPROVED REPORT Date of service: 09/17/2018 EKG Measurement Heart [id number] <Conclusion> Normal sinus rhythm Cannot rule out Anterior infarct, age undetermined Abnormal ECG
[2018-09-19] MEDS ORDERED: Tramadol 25 mg PO PRN (14:13)
[2018-09-19] MEDS: (Lantus) Insulin Glargine, Recombinant SC SCH (21:47)
[2018-09-20 07:32] LABS: BASO % 0.6 % (0.0-2.0); EOS # 0.1 K/uL (0.0-0.7); EOS % 1.9 % (0.0-4.0); HEMOGLOBIN 13.5 g/dL (12.0-18.0); LYMPH # 1.6 K/uL (1.0-4.3); LYMPH % 24.6 % (20.0-40.0); MEAN CELL VOLUME 95.2 fL (80.0-94.0); MEAN CORPUSCULAR HEMOGLOBIN 32.4 pg (27.0-31.0); MONO # 0.3 K/uL (0.0-0.8); MONO % 5.3 % (0.0-10.0); NEUT # 4.3 K/uL (1.8-7.0); NEUT % 67.6 % (50.0-75.0); RBC 4.16 Mil/uL (4.40-5.90); WHITE BLOOD COUNT 6.4 K/uL (4.8-10.8)
[2018-09-20 08:04] LABS: ALB/GLOB RATIO 1.2 (1.0-2.1); ALBUMIN 3.2 g/dL (3.5-5.0); ALT/SGPT 23 U/L (21-72); AST/SGOT 17 U/L (17-59); BLOOD UREA NITROGEN 34 mg/dL (9-20); CALCIUM 8.9 mg/dl (8.6-10.4); GFR NON-AFRICAN AMERICAN > 60
--- NOTE | 2018-09-20 08:24 | CP.PCM.PN ---
Subjective - Date & Time of Evaluation Date of Evaluation: 09/20/18 Time of Evaluation: 08:21 - Subjective Subjective: PGY3 progress note for Dr. Ferrari Pt seen and examined at bedside. No acute events overnight. Pt is sitting comfotably in bed eating breakfast. Complains of minimal pain in his right hip. Patient states he is able to ambulate with walker and would like ot be discharged home. Patient denies having any CP, SOB, abd pain, N/V/D/C, F/C, LE swelling. Objective - Vital Signs/Intake and Output Vital Signs (last 24 hours): Temp Pulse Resp BP Pulse Ox 98.6 F 53 L 20 130/64 96 09/19/18 23:05 09/19/18 23:05 09/19/18 23:05 09/19/18 23:05 09/19/18 23:05 Intake and Output: 09/20/18 09/20/18 06:59 18:59 Intake Total 50 Output Total 800 Balance -750 - Medications Medications: Current Medications Dextrose (Dextrose 50% Inj) 0 ml IV STAT PRN; Protocol PRN Reason: Hypoglycemia Protocol Dextrose (Glutose 15) 0 gm PO ONCE PRN; Protocol PRN Reason: Hypoglycemia Protocol Enoxaparin Sodium (Lovenox) 40 mg SC DAILY [facility] Last Admin: 09/19/18 10:00 Dose: 40 mg Escitalopram Oxalate (Lexapro) 10 mg PO DAILY [facility] Last Admin: 09/19/18 10:05 Dose: 10 mg Gabapentin (Neurontin) 300 mg PO BID [facility] Last Admin: 09/19/18 17:14 Dose: 300 mg Glucagon (Glucagen Diagnostic Kit) 0 mg IM STAT PRN; Protocol PRN Reason: Hypoglycemia Protocol Dextrose (Dextrose 5% In Water 1000 Ml) 1,000 mls @ 0 mls/hr IV .Q0M PRN; Protocol PRN Reason: Hypoglycemia Protocol Insulin Aspart (Novolog) 0 unit SC [facility]; Protocol Last Admin: 09/19/18 22:00 Dose: Not Given Insulin Glargine (Lantus) 20 unit SC HS [facility] Last Admin: 09/19/18 21:47 Dose: 20 unit Metformin HCl (Glucophage) 500 mg PO BID [facility] Last Admin: 09/19/18 17:14 Dose: 500 mg Metoprolol Tartrate (Lopressor) 25 mg PO 0800,1800 [facility] Last Admin: 09/19/18 17:14 Dose: 25 mg Pantoprazole Sodium (Protonix Ec Tab) 40 mg PO DAILY [facility] Last Admin: 09/19/18 10:00 Dose: 40 mg Primidone (Mysoline) 50 mg PO HS [facility] Last Admin: 09/19/18 21:59 Dose: 50 mg Quetiapine Fumarate (Seroquel) 50 mg PO DAILY [facility] Last Admin: 09/19/18 10:00 Dose: 50 mg Tramadol HCl (Ultram) 25 mg PO TID PRN PRN Reason: Pain, moderate (4-7) - Labs Labs: 09/20/18 07:17 09/20/18 07:17 PT 11.2 SECONDS (9.7-12.2) 09/18/18 07:44 INR 1.0 09/18/18 07:44 APTT 32.0 SECONDS (21-34) 09/18/18 07:44 - Constitutional Appears: Non-toxic, No Acute Distress - Head Exam Head Exam: ATRAUMATIC, NORMOCEPHALIC - ENT Exam ENT Exam: Mucous Membranes Moist - Respiratory Exam Respiratory Exam: Clear to Ausculation Bilateral. absent: Rales, Rhonchi, Wheezes - Cardiovascular Exam Cardiovascular Exam: REGULAR RHYTHM, +S1, +S2 - GI/Abdominal Exam GI & Abdominal Exam: Soft, Normal Bowel Sounds. absent: Distended, Firm, Guarding, Rigid, Tenderness, Organomegaly - Extremities Exam Extremities Exam: absent: Pedal Edema, Tenderness - Neurological Exam Neurological Exam: Alert, Awake, Oriented x3 - Psychiatric Exam Psychiatric exam: Normal Affect, Normal Mood - Skin Skin Exam: Dry, Intact, Normal Color, Warm Assessment and Plan - Assessment and Plan (Free Text) Assessment: 63 year old male with past medical history of hypertension, uncontrolled diabetes, hyperlipidemia, CAD s/p stent is admitted for right hip greater trochanteric fracture Right hip greater trochanteric fracture -Lower extremity CT shows suspected nondisplaced fracture through the base of the greater trochanter, of indeterminate age. -Orthopedic consulted, Dr. Hi help appreciated -No acute surgical intervention at this time -PT/OT -Tramadol 30mg IV Q6prn - Lovenox SC Diabetes -Metformin 500mg po BID -Lantus 20u HS -ISS -Hypoglycemic protocol -CCD Diabetic neuropathy - gabapentin Hypertension -Metoprolol 25mg BID Depression -Seroquel 50mg - Lexapro Tremors - Mysoline Prophylactic measures -Lovenox -Protonix -PT/OT Case discussed with Dr. Ferrari. All orders and management per attending Patient is stable to be discharged home per Dr. Ferrari Patient is to follow up with primary care doctor in 1 week upon discharge. Patient is to follow up with orthopedic surgeon, Dr. Hi in 2 weeks. Please return to ED if symptoms worsen. Continue taking home medications as prescribed. Patient also discharged with the following medication: Ultram 25 mg by mouth three times a day for 5 days #15 tabs
[2018-09-20] MEDS: (Novolog) Insulin Aspart, Recombinant 100 u/ml 10 ml vial SC SCH ×2 (08:29→12:30)
[2018-09-20] MEDS: Enoxaparin 40 mg Syringe SC SCH (09:59)
[2018-09-20] MEDS: Pantoprazole 40 mg EC Tab PO SCH (09:59)
[2018-09-20 17:30] VITALS: BP 148/74; PULSE 50; TEMP 97.7; O2SAT 94
== END 2018-09-20 17:48 | disposition home or self-care (01) | DRG 236 ==
LOC: C.ER 16:49 → C.9E 18:50 → C.6T 19:57
PROVIDERS: ADMIT Internal Medicine Pulmonary Disease; ATTEND Internal Medicine Pulmonary Disease
DX: S72.114A Nondisplaced fracture of greater trochanter of right femur, initial encounter for closed fracture (principal); E11.40 Type 2 diabetes mellitus with diabetic neuropathy, unspecified; E11.22 Type 2 diabetes mellitus with diabetic chronic kidney disease; N18.9 Chronic kidney disease, unspecified; F20.9 Schizophrenia, unspecified; E78.00 Pure hypercholesterolemia, unspecified; E11.65 Type 2 diabetes mellitus with hyperglycemia; I12.9 Hypertensive chronic kidney disease with stage 1 through stage 4 chronic kidney disease, or unspecified chronic kidney disease; G20 Parkinson's disease; I25.10 Atherosclerotic heart disease of native coronary artery without angina pectoris; F32.9 Major depressive disorder, single episode, unspecified; M16.11 Unilateral primary osteoarthritis, right hip; J45.909 Unspecified asthma, uncomplicated; Z86.19 Personal history of other infectious and parasitic diseases; F17.210 Nicotine dependence, cigarettes, uncomplicated; W18.30XA Fall on same level, unspecified, initial encounter; Z91.81 History of falling; Z79.4 Long term (current) use of insulin; Z95.5 Presence of coronary angioplasty implant and graft; M51.27 Other intervertebral disc displacement, lumbosacral region

== ENCOUNTER 2018-09-21 11:33 | Observation (INO) | payer MEDICAID | END 2018-09-22 22:45 | LOC: C.ER 11:33 → C.9E 15:23 → C.6T 15:46 | PROVIDERS: ADMIT Internal Medicine Pulmonary Disease | CPT/HCPCS: 36415; 80053; 80320; 80324; 80345; 80346; 80349; 80353; 80358; 80361; 81001; 82948; 83735; 83992; 84100; 85025; 96372; 96374; 96376; 97116; 97162; 97166; 97530; 99285; G0378; G8978; G8979; G8987; G8988; J1650; J1885; J2060; J7120 ==